=== PATIENT | female | born 1940 | race Hispanic/Latino ===

== ENCOUNTER 2017-04-05 19:31 | Inpatient (IN) | payer MEDICARE, MEDICAID ==
--- NOTE | 2017-04-05 22:39 | CP.PCM.HP ---
History of Present Illness - History of Present Illness History of Present Illness: PCP: Dr Anne Chief complaint: Left side weakness HPI: this hx is obtained from the medical hx. This is a 77 years old female, sent from [facility] to [facility] for Continued care and PT. She has Hx of CHF, CKD; HTN and and chronic left Frontal CVA and was admitted to the [facility] on 04/01/17 with a Right Large Acute MCA infarct and Left side weakness left side weakness. She refers no Headaches, dizziness, SOB nor Chest pains. PMH: Chronic A Fib on anticoagulant; Cardiomyopathy; CKD; CHF; HTN; Hypothyroidism; Chronic CVA; resolved Renal Cancer, PSH: Right hip Repaired fracture;Renal cell carcinoma s/p Right Nephrectomy SH: No Alcohol; No illegal drug use; no cigarettes; FH: No known family hx Allergies: NKDA Present on Admission - Present on Admission Any Indicators Present on Admission: No History of DVT/PE: No History of Uncontrolled Diabetes: No Urinary Catheter: No Decubitus Ulcer Present: No Review of Systems - Review of Systems Review of Systems: Review of system is limited because of the patients lack of attentiveness and mildly confused state. Past Patient History - Past Medical History & Family History Past Medical History?: Yes - Past Social History Smoking Status: Never Smoked Chewing Tobacco Use: No Cigar Use: No Alcohol: None - CARDIAC Hx Atrial Fibrillation: Yes Hx Congestive Heart Failure: Yes (Cardiomyopathy) Hx Hypertension: Yes - PULMONARY Hx Respiratory Disorders: No - NEUROLOGICAL HX Cerebrovascular Accident: Yes - HEENT Hx HEENT Problems: No - RENAL Hx Chronic Kidney Disease: Yes Hx Renal (Kidney) Cancer: Yes - ENDOCRINE/METABOLIC Hx Endocrine Disorders: Yes Hx Hypothyroidism: Yes - HEMATOLOGICAL/ONCOLOGICAL Hx Blood Disorders: No - INTEGUMENTARY Hx Dermatological Problems: No - MUSCULOSKELETAL/RHEUMATOLOGICAL Hx Musculoskeletal Disorders: No - GASTROINTESTINAL Hx Gastrointestinal Disorders: No - GENITOURINARY/GYNECOLOGICAL Hx Genitourinary Disorders: No - PSYCHIATRIC Hx Psychophysiologic Disorder: No - SURGICAL HISTORY Hx Orthopedic Surgery: Yes (Right hip Fx surgery) Other/Comment: Right Nephrectomy - ANESTHESIA Hx Anesthesia: Yes Hx Anesthesia Reactions: No Meds Allergies/Adverse Reactions: Allergies Allergy/AdvReac Type Severity Reaction Status Date / Time No Known Allergies Allergy NONE Verified 04/05/17 21:51 Physical Exam - Constitutional Appears: No Acute Distress - Head Exam Head Exam: ATRAUMATIC, NORMAL INSPECTION, NORMOCEPHALIC - Eye Exam Eye Exam: EOMI, Normal appearance Pupil Exam: NORMAL ACCOMODATION, PERRL - ENT Exam ENT Exam: Mucous Membranes Moist, Normal Exam, Normal External Ear Exam, Normal Oropharynx - Neck Exam Neck exam: Positive for: Full Rom, Normal Inspection. Negative for: Lymphadenopathy, Tenderness - Respiratory Exam Respiratory Exam: Clear to Auscultation Bilateral. absent: Rales, Wheezes, NORMAL BREATHING PATTERN - Cardiovascular Exam Cardiovascular Exam: REGULAR RHYTHM, RRR, +S1, +S2. absent: Gallop, JVD - GI/Abdominal Exam GI & Abdominal Exam: Normal Bowel Sounds, Soft. absent: Mass, Organomegaly, Tenderness - Rectal Exam Rectal Exam: Deferred - Extremities Exam Extremities exam: Positive for: full ROM, normal inspection. Negative for: calf tenderness, joint swelling - Back Exam Back exam: NORMAL INSPECTION. absent: CVA tenderness (L), CVA tenderness (R) - Neurological Exam Neurological exam: Alert, CN II-XII Intact, Reflexes Normal - Psychiatric Exam Psychiatric exam: Flat Affect - Skin Skin Exam: Intact, Normal Color, Warm Results - Labs Labs: PND Assessment & Plan - Assessment and Plan (Free Text) Assessment: #. Acute CVA #. A Fib #. Chronic CHF #. CKD #. HTN Plan: 77 years old female, sent from [facility] to [facility] for Continued care and PT. She has Hx of CHF, CKD; HTN and and chronic left Frontal CVA and was admitted to the [facility] on 04/01/17 with a Right Large Acute MCA infarct and Left side weakness left side weakness. #. Acute CVA - OT/PT evaluation and management #. A Fib with controlled response - Eliquis - Metoprolol #. Chronic CHF - Metoprolol - Lasix -Apresoline #. CKD - follow renal labs #. HTN - Metoprolol - Amlodipine; amlodipine #. DVT Prophylaxis: Patient on Eliquis #. Code Status: Full - Date & Time Date: 04/05/17 Time: 22:39
[2017-04-05] MEDS ORDERED: Ergocalciferol 50,000 Intl Units Cap PO SCH (23:45)
[2017-04-06] MEDS ORDERED: Magnesium Hydroxide Susp 30 ml UD PO PRN (00:51)
[2017-04-06] MEDS: Hydrocortisone 2.5% (Rectal) CREAM PR SCH ×2 (02:46→08:55)
[2017-04-06 06:57] LABS: HEMATOCRIT 38.9 % (34.0-47.0); MEAN CELL VOLUME 97.5 fl (81.0-99.0); MEAN CORPUSCULAR HGB CONC 31.8 g/dL (33.0-37.0); RED CELL DISTRIBUTION WIDTH 13.2 % (11.5-14.5); WHITE BLOOD COUNT 9.7 K/uL (4.8-10.8)
[2017-04-06 06:59] LABS: ALB/GLOB RATIO 1.2 (1.0-2.1); BILIRUBIN,TOTAL 0.6 mg/dl (0.2-1.3); CALCIUM 9.8 mg/dL (8.4-10.2); POTASSIUM 4.4 MMOL/L (3.6-5.0); TOTAL PROTEIN 7.3 G/DL (6.3-8.2)
[2017-04-06 07:30] LABS: PARTIAL THROMBOPLASTIN TIME 36.1 Seconds (25.6-37.1)
[2017-04-06] MEDS: Aspirin 325 mg EC Tablets PO SCH (08:52)
[2017-04-06] MEDS ORDERED: PREDNISONE 5 MG PO SCH (09:00)
--- NOTE | 2017-04-06 16:22 | CP.PCM.PN ---
Subjective - Date & Time of Evaluation Date of Evaluation: 04/06/17 Time of Evaluation: 16:20 - Subjective Subjective: right CVA with left HORSE RIDER and neglect Objective - Vital Signs/Intake and Output Vital Signs (last 24 hours): Temp Pulse Resp BP Pulse Ox 97.1 F L 77 19 147/80 96 04/06/17 08:38 04/06/17 08:54 04/06/17 08:38 04/06/17 08:54 04/06/17 08:38 - Medications Medications: Current Medications Acetaminophen (Tylenol 325mg Tab) 650 mg PO Q6 PRN PRN Reason: Other Amlodipine Besylate (Norvasc) 10 mg PO DAILY [facility] Last Admin: 04/06/17 08:52 Dose: 10 mg Apixaban (Eliquis) 2.5 mg PO BID [facility] PRN Reason: Protocol Last Admin: 04/06/17 08:51 Dose: 2.5 mg Aspirin (Ecotrin) 325 mg PO DAILY [facility] Last Admin: 04/06/17 08:52 Dose: 325 mg Atorvastatin Calcium (Lipitor) 20 mg PO HS [facility] Last Admin: 04/05/17 23:58 Dose: 20 mg Calcitriol (Rocaltrol) 0.25 mcg PO DAILY [facility] Last Admin: 04/06/17 08:53 Dose: 0.25 mcg Docusate Sodium (Colace) 100 mg PO BID [facility] Last Admin: 04/06/17 08:51 Dose: 100 mg Donepezil HCl (Aricept) 5 mg PO HS [facility] Last Admin: 04/05/17 23:58 Dose: 5 mg Ergocalciferol (Drisdol 50,000 Intl Units Cap) 1 cap PO .SATURDAY AND SATURDAY [facility] Famotidine (Pepcid) 20 mg PO BID [facility] Last Admin: 04/06/17 08:53 Dose: 20 mg Hydrocortisone (Anusol-Hc) 25 mg [place] BID [facility] Magnesium Hydroxide (Milk Of Magnesia) 30 ml PO DAILY PRN PRN Reason: Other Last Admin: 04/06/17 02:47 Dose: 30 ml Metoprolol Tartrate (Lopressor) 25 mg PO Q12 [facility] Last Admin: 04/06/17 08:54 Dose: 25 mg Prednisone (Prednisone Tab) 5 mg PO DAILY [facility] Last Admin: 04/06/17 08:51 Dose: 5 mg Psyllium Hydrophilic Mucilloid (Hydrocil Instant) 1 pkt PO BID [facility] Tramadol HCl (Ultram) 50 mg PO Q4 PRN PRN Reason: Pain, severe (8-10) - Labs Labs: 04/06/17 05:30 04/06/17 05:30 PT 12.5 Seconds (9.8-13.1) 04/06/17 06:45 INR 1.1 (0.9-1.2) 04/06/17 06:45 APTT 36.1 Seconds (25.6-37.1) 04/06/17 06:45 Physiatry Overall Plan of Care - Overall Plan of Care Estimated Length of Stay in Weeks: 3 Rehab Impairment: Mobility, Gait, Cognition, Balance, Coordination Etiologic Diagnosis: Cerebrovascular Accident Rehab/Medical Prognosis: Fair - Anticipated Interventions Physical Therapy:: Yes Occupational Therapy:: Yes Speech Therapy:: Yes Recreational Therapy:: Yes - Therapy Goals Bed Mobility: Supervision Ambulation: Supervision Functional Positional Changes:: Supervision - Discharge Plan Identification of Barriers to Discharge: Home Situation Discharge Destination: Home
--- NOTE | 2017-04-06 16:24 | CP.PCM.CON ---
History of Present Illness - History of Present Illness History of Present Illness: Dr Childress PMR consultation on [place] Bolanos born 1940, who has been admitted to [facility] for acute inpatient rehabilitation following an acute right CVA with left HP and left neglect. She had been ambulating with a SC. Review of Systems - Constitutional Constitutional: Daytime Sleepiness. absent: Anorexia, Chills - EENT Eyes: absent: Change in Vision Ears: absent: Decreased Hearing Nose/Mouth/Throat: absent: Nasal Congestion - Cardiovascular Cardiovascular: absent: Chest Pain, Rapid Heart Rate - Respiratory Respiratory: absent: Cough, Hemoptysis - Gastrointestinal Gastrointestinal: Other (symptoms of a hemorrhoid). absent: Belching - Musculoskeletal Musculoskeletal: Abnormal Gait. absent: Back Pain - Integumentary Integumentary: absent: Bleeding Lesions - Neurological Neurological: Other (left neglect). absent: Abnormal Hearing, Abnormal Movements Past Patient History - Past Medical History & Family History Past Medical History?: Yes - Past Social History Smoking Status: Never Smoked Chewing Tobacco Use: No Cigar Use: No Alcohol: None - CARDIAC Hx Atrial Fibrillation: Yes Hx Congestive Heart Failure: Yes (Cardiomyopathy) Hx Hypertension: Yes - PULMONARY Hx Respiratory Disorders: No - NEUROLOGICAL HX Cerebrovascular Accident: Yes - HEENT Hx HEENT Problems: No - RENAL Hx Chronic Kidney Disease: Yes Hx Renal (Kidney) Cancer: Yes - ENDOCRINE/METABOLIC Hx Endocrine Disorders: Yes Hx Hypothyroidism: Yes - HEMATOLOGICAL/ONCOLOGICAL Hx Blood Disorders: No - INTEGUMENTARY Hx Dermatological Problems: No - MUSCULOSKELETAL/RHEUMATOLOGICAL Hx Musculoskeletal Disorders: No - GASTROINTESTINAL Hx Gastrointestinal Disorders: No - GENITOURINARY/GYNECOLOGICAL Hx Genitourinary Disorders: No - PSYCHIATRIC Hx Psychophysiologic Disorder: No - SURGICAL HISTORY Hx Orthopedic Surgery: Yes (Right hip Fx surgery) Other/Comment: Right Nephrectomy - ANESTHESIA Hx Anesthesia: Yes Hx Anesthesia Reactions: No Meds Allergies/Adverse Reactions: Allergies Allergy/AdvReac Type Severity Reaction Status Date / Time No Known Allergies Allergy NONE Verified 04/05/17 21:51 - Medications Medications: Current Medications Acetaminophen (Tylenol 325mg Tab) 650 mg PO Q6 PRN PRN Reason: Other Amlodipine Besylate (Norvasc) 10 mg PO DAILY [facility] Last Admin: 04/06/17 08:52 Dose: 10 mg Apixaban (Eliquis) 2.5 mg PO BID [facility] PRN Reason: Protocol Last Admin: 04/06/17 08:51 Dose: 2.5 mg Aspirin (Ecotrin) 325 mg PO DAILY [facility] Last Admin: 04/06/17 08:52 Dose: 325 mg Atorvastatin Calcium (Lipitor) 20 mg PO HS [facility] Last Admin: 04/05/17 23:58 Dose: 20 mg Calcitriol (Rocaltrol) 0.25 mcg PO DAILY [facility] Last Admin: 04/06/17 08:53 Dose: 0.25 mcg Docusate Sodium (Colace) 100 mg PO BID [facility] Last Admin: 04/06/17 08:51 Dose: 100 mg Donepezil HCl (Aricept) 5 mg PO HS [facility] Last Admin: 04/05/17 23:58 Dose: 5 mg Ergocalciferol (Drisdol 50,000 Intl Units Cap) 1 cap PO .SATURDAY AND SATURDAY [facility] Famotidine (Pepcid) 20 mg PO BID [facility] Last Admin: 04/06/17 08:53 Dose: 20 mg Hydrocortisone (Anusol-Hc) 25 mg [place] BID [facility] Magnesium Hydroxide (Milk Of Magnesia) 30 ml PO DAILY PRN PRN Reason: Other Last Admin: 04/06/17 02:47 Dose: 30 ml Metoprolol Tartrate (Lopressor) 25 mg PO Q12 [facility] Last Admin: 04/06/17 08:54 Dose: 25 mg Prednisone (Prednisone Tab) 5 mg PO DAILY [facility] Last Admin: 04/06/17 08:51 Dose: 5 mg Psyllium Hydrophilic Mucilloid (Hydrocil Instant) 1 pkt PO BID [facility] Tramadol HCl (Ultram) 50 mg PO Q4 PRN PRN Reason: Pain, severe (8-10) Physical Exam - Constitutional Appears: Non-toxic, No Acute Distress - Head Exam Head Exam: ATRAUMATIC, NORMAL INSPECTION, NORMOCEPHALIC - Eye Exam Eye Exam: EOMI, Normal appearance - ENT Exam ENT Exam: Mucous Membranes Moist - Respiratory Exam Respiratory Exam: Chest Wall Tenderness, NORMAL BREATHING PATTERN - Cardiovascular Exam Cardiovascular Exam: REGULAR RHYTHM - GI/Abdominal Exam GI & Abdominal Exam: Normal Bowel Sounds - Extremities Exam Extremities exam: Negative for: calf tenderness, pedal edema - Neurological Exam Neurological exam: Alert - Psychiatric Exam Psychiatric exam: Normal Affect, Normal Mood Results - Vital Signs Recent Vital Signs: Last Vital Signs Temp 97.1 F L 04/06/17 08:38 Pulse 77 10/07/17 08:54 Resp 19 04/06/17 08:38 BP 147/80 04/06/17 08:54 Pulse Ox 96 04/06/17 08:38 - Labs Result Diagrams: 04/06/17 05:30 04/06/17 05:30 Labs: Laboratory Results - last 24 hr 04/06/17 04/06/17 04/06/17 05:30 05:30 06:45 WBC 9.7 RBC 4.00 Hgb 12.4 Hct 38.9 MCV 97.5 MCH 31.0 MCHC 31.8 L RDW 13.2 Plt Count 230 PT 12.5 INR 1.1 APTT 36.1 Sodium 143 Potassium 4.4 Chloride 104 Carbon Dioxide 24 Anion Gap 19 BUN 64 H Creatinine 2.8 H Est GFR ( Amer) 20 Est GFR (Non-Af Amer) 16 Random Glucose 104 Calcium 9.8 Total Bilirubin 0.6 AST 34 ALT 30 Alkaline Phosphatase 65 Total Protein 7.3 Albumin 4.0 Globulin 3.3 Albumin/Globulin Ratio 1.2 Assessment & Plan - Assessment and Plan (Free Text) Assessment: Patient with a right CVA and left HP and left neglect PT/OT to continue to help increase functional independence Team conference for d/c planning Pain: controlled Vascular: no evidence of DVT GI: No evidence of constipation or diarrhea Patient is an excellent acute rehabilitation candidate and will have focused speech, PT, OT and recreational therapy to help facilitate a safe and appropriate d/c plan impairment code 01.1
[2017-04-06] MEDS: Psyllium Packet PO SCH (17:52)
[2017-04-06] MEDS ORDERED: Patient's Own Med (Simvastatin [Zocor] 40 MG) PO SCH (22:00)
[2017-04-07] MEDS: Psyllium Packet PO SCH ×2 (08:58→17:50)
[2017-04-07] MEDS: Aspirin 325 mg EC Tablets PO SCH (08:59)
[2017-04-08] MEDS: Aspirin 325 mg EC Tablets PO SCH (08:28)
[2017-04-08] MEDS: Psyllium Packet PO SCH ×2 (08:29→16:28)
--- NOTE | 2017-04-08 11:39 | PCM.RRT ---
HOTEL MAINTENANCE WORKER Nurse Assessment - Situation [employer]OTEL MAINTENANCE WORKER Responder Arrival Time: 11:35 Location: 6th floor Room Number: [id number] [employer]EL MAINTENANCE WORKER Reason for Call: Chest Pain HOTEL MAINTENANCE WORKER Called By: RN - IV IV Inserted during HOTEL MAINTENANCE WORKER?: Yes - Respiratory Oxygen Delivery Method: Nasal Cannula Received Nebulizer Treatments: No Was the Patient Ventilated with Bag/Mask 100% O2?: No Secretions Suctioned?: No Was the Patient Intubated?: No Was the Patient Placed on a Ventilator?: No - Diagnostic Test Ordered EKG: Yes - Stat Labs Ordered [employer]OTEL MAINTENANCE WORKER Stat Labs Ordered: TROPONIN Plan - Assessment of Findings&Treatment Plan HOTEL MAINTENANCE WORKER: 11:32 AM HOTEL MAINTENANCE WORKER location: 62- [employer]EL MAINTENANCE WORKER arrival: 11:35 am [employer]EL MAINTENANCE WORKER reason: chest pain S: Patient was seen at bedside after HOTEL MAINTENANCE WORKER was called by the RN complaining of chest pain. Patient is lying in bed awake with chest pain. Patient is currently on nasal cannula. O: HOTEL MAINTENANCE WORKER vitals: T: 97.5, BP: 130/75 mmHg, HR: 52, General: Lying supine in bed Heent: AT/NC RESP: CTAB Cardio: S1 S2 Abd: soft, non-tender [employer]EL MAINTENANCE WORKER Intervention: 1. 1 mg of Morphine administered 2. Troponin levels 3. EKG A/P: 77 y/o female seen for sudden onset of chest pain [employer]OTEL MAINTENANCE WORKER Outcome: 1. Patient is stable 2. continue monitoring vitals 3. PMD: Dr. Mccord 4. F/U with troponin and EKG [employer]OTEL MAINTENANCE WORKER vitals: T: 97.5, BP: 161/58 mmHg, HR: 81 [employer]OTEL MAINTENANCE WORKER End: 11:43 am [employer]OTEL MAINTENANCE WORKER Leader: Dr. Mccord HOTEL MAINTENANCE WORKER Resident: Dr. Pj Mejia, Dr. Nicol Mejia, Dr. Gideon White
--- NOTE | 2017-04-08 15:04 | CP.PCM.PN ---
Subjective - Date & Time of Evaluation Date of Evaluation: 04/08/17 Time of Evaluation: 14:00 - Subjective Subjective: Today the patient had a sudden episode of chest pain which was worse with moving her left arm. DIRECTOR EPIDEMIOLOGY was called, please see note for further details. Currently the patient is chest pain free, with troponin being in normal limits, and no acute changes on EKG. The patient has no other complaints today. She says she feels well otherwise. Objective - Vital Signs/Intake and Output Vital Signs (last 24 hours): Temp Pulse Resp BP Pulse Ox 97.7 F 72 18 141/74 100 04/08/17 07:47 04/08/17 12:03 04/08/17 12:03 04/08/17 12:03 04/08/17 12:03 - Medications Medications: Current Medications Acetaminophen (Tylenol 325mg Tab) 650 mg PO Q6 PRN PRN Reason: Other Last Admin: 04/07/17 09:06 Dose: 650 mg Amlodipine Besylate (Norvasc) 10 mg PO DAILY [facility] Last Admin: 04/08/17 08:28 Dose: 10 mg Apixaban (Eliquis) 2.5 mg PO BID [facility] PRN Reason: Protocol Last Admin: 04/08/17 08:28 Dose: 2.5 mg Aspirin (Ecotrin) 325 mg PO DAILY [facility] Last Admin: 04/08/17 08:28 Dose: 325 mg Atorvastatin Calcium (Lipitor) 20 mg PO HS [facility] Last Admin: 04/07/17 21:03 Dose: 20 mg Calcitriol (Rocaltrol) 0.25 mcg PO DAILY [facility] Last Admin: 04/08/17 08:28 Dose: 0.25 mcg Docusate Sodium (Colace) 100 mg PO BID [facility] Last Admin: 04/08/17 08:27 Dose: 100 mg Donepezil HCl (Aricept) 5 mg PO HS [facility] Last Admin: 04/07/17 21:06 Dose: 5 mg Ergocalciferol (Drisdol 50,000 Intl Units Cap) 1 cap PO .SATURDAY AND SATURDAY [facility] Famotidine (Pepcid) 20 mg PO BID [facility] Last Admin: 04/08/17 08:28 Dose: 20 mg Hydrocortisone (Anusol-Hc) 25 mg [place] BID [facility] Last Admin: 04/08/17 08:29 Dose: 25 mg Magnesium Hydroxide (Milk Of Magnesia) 30 ml PO DAILY PRN PRN Reason: Other Last Admin: 04/06/17 02:47 Dose: 30 ml Metoprolol Tartrate (Lopressor) 25 mg PO Q12 [facility] Last Admin: 04/08/17 08:26 Dose: 25 mg Prednisone (Prednisone Tab) 5 mg PO DAILY [facility] Last Admin: 04/08/17 08:29 Dose: 5 mg Psyllium Hydrophilic Mucilloid (Hydrocil Instant) 1 pkt PO BID [facility] Last Admin: 04/08/17 08:29 Dose: 1 pkt Tramadol HCl (Ultram) 50 mg PO Q4 PRN PRN Reason: Pain, severe (8-10) - Labs Labs: 04/06/17 05:30 04/06/17 05:30 PT 12.5 Seconds (9.8-13.1) 04/06/17 06:45 INR 1.1 (0.9-1.2) 04/06/17 06:45 APTT 36.1 Seconds (25.6-37.1) 04/06/17 06:45 - Additional Findings Additional findings: PHYSICAL EXAMINATION: GENERAL: The patient is alert and oriented x 3, seen in wheelchair undergoing physical therapy, appears comfortable HEENT: Normocephalic, atraumatic. Extraocular movements intact. No sinus tenderness. Oropharynx clear. Mucous membranes are moist. no scleral icterus NECK: Supple without lymph node. CHEST: CTA bilaterally, no wheezes, rales, or rhonchi HEART: S1, S2. regular rate and rhythm ABDOMEN: Soft, nontender, nondistended No organomegaly. EXTREMITIES: No cyanosis, clubbing or edema. NEUROLOGIC: No focal deficit. No sensory deficit. PSYCHOSOCIAL: No signs of depression and is nonfocal. INTEGUMENT: Moist mucous membranes. Good skin turgor, intact. Assessment and Plan - Assessment and Plan (Free Text) Plan: 1). Acute CVA 2). A Fib 3). Chronic CHF 4). CKD 5). HTN 6) Chest pain today, resolved Plan: This is a 77 years old female, sent from [facility] to [facility] for Continued care and PT. She has Hx of CHF, CKD; HTN and and chronic left Frontal CVA and was admitted to the [facility] on 10/2/17 with a Right Large Acute MCA infarct and Left side weakness left side weakness. 1) . Acute CVA - Continue OT/PT, ongoing 2). A Fib/Flutter with controlled response - Continue Eliquis - Continue Metoprolol 3). Chronic CHF - Metoprolol - Lasix -Apresoline 4). CKD - follow renal labs 5). HTN - Metoprolol - Amlodipine; amlodipine 6). DVT Prophylaxis: Patient on Eliquis 7) Chest pain today, resolved - Troponin WNL - EKG with no acute changes - Likely musculoskeletal in nature, rufina given that pain is worse with movement of her arm. #. Code Status: Full
--- NOTE | 2017-04-08 16:39 | CP.PCM.PN ---
Subjective - Date & Time of Evaluation Date of Evaluation: 04/08/17 Time of Evaluation: 16:38 - Subjective Subjective: Patient seen in room still with dense left neglect in spite of minimal weakness in the involved extremity had some chest pain earlier today but now feels good continue therapy Objective - Vital Signs/Intake and Output Vital Signs (last 24 hours): Temp Pulse Resp BP Pulse Ox 97.7 F 74 18 141/74 100 04/08/17 07:47 04/08/17 16:12 04/08/17 12:03 04/08/17 12:03 04/08/17 16:12 - Medications Medications: Current Medications Acetaminophen (Tylenol 325mg Tab) 650 mg PO Q6 PRN PRN Reason: Other Last Admin: 04/07/17 09:06 Dose: 650 mg Amlodipine Besylate (Norvasc) 10 mg PO DAILY [facility] Last Admin: 04/08/17 08:28 Dose: 10 mg Apixaban (Eliquis) 2.5 mg PO BID [facility] PRN Reason: Protocol Last Admin: 04/08/17 16:28 Dose: 2.5 mg Aspirin (Ecotrin) 325 mg PO DAILY [facility] Last Admin: 04/08/17 08:28 Dose: 325 mg Atorvastatin Calcium (Lipitor) 20 mg PO HS [facility] Last Admin: 04/07/17 21:03 Dose: 20 mg Calcitriol (Rocaltrol) 0.25 mcg PO DAILY [facility] Last Admin: 04/08/17 08:28 Dose: 0.25 mcg Docusate Sodium (Colace) 100 mg PO BID [facility] Last Admin: 04/08/17 16:28 Dose: 100 mg Donepezil HCl (Aricept) 5 mg PO HS [facility] Last Admin: 04/07/17 21:06 Dose: 5 mg Ergocalciferol (Drisdol 50,000 Intl Units Cap) 1 cap PO .SATURDAY AND SATURDAY [facility] Famotidine (Pepcid) 20 mg PO BID [facility] Last Admin: 04/08/17 16:29 Dose: 20 mg Hydrocortisone (Anusol-Hc) 25 mg [place] BID [facility] Last Admin: 04/08/17 16:27 Dose: 25 mg Magnesium Hydroxide (Milk Of Magnesia) 30 ml PO DAILY [facility] PRN Reason: Other Last Admin: 04/06/17 02:47 Dose: 30 ml Metoprolol Tartrate (Lopressor) 25 mg PO Q12 [facility] Last Admin: 04/08/17 08:26 Dose: 25 mg Prednisone (Prednisone Tab) 5 mg PO DAILY [facility] Last Admin: 04/08/17 08:29 Dose: 5 mg Psyllium Hydrophilic Mucilloid (Hydrocil Instant) 1 pkt PO BID [facility] Last Admin: 04/08/17 16:28 Dose: 1 pkt Tramadol HCl (Ultram) 50 mg PO Q4 PRN PRN Reason: Pain, severe (8-10) - Labs Labs: 04/06/17 05:30 04/06/17 05:30 PT 12.5 Seconds (9.8-13.1) 04/06/17 06:45 INR 1.1 (0.9-1.2) 04/06/17 06:45 APTT 36.1 Seconds (25.6-37.1) 04/06/17 06:45
[2017-04-09] MEDS: Aspirin 325 mg EC Tablets PO SCH (09:16)
[2017-04-09] MEDS: Psyllium Packet PO SCH ×2 (09:17→17:05)
--- NOTE | 2017-04-09 12:47 | CARD ---
APPROVED REPORT EKG Measurement Heart [id number] P81 [id number] <Conclusion> Atrial flutter with 4:1 AV conduction Right bundle branch block Inferior infarct, age undetermined Abnormal ECG
--- NOTE | 2017-04-09 13:23 | PSY.TMCNF ---
Nursing - Vital Signs Vital Signs (Last 8 hours): Vital Signs 04/09/17 04/09/17 04/09/17 08:19 09:17 09:19 Temperature 97.5 F L Pulse Rate 72 72 72 Respiratory 20 Rate Blood Pressure 139/88 139/88 139/88 O2 Sat by Pulse 100 Oximetry Pain: 0 - Medications/Other Issues Comment: Pt at high nutritional risk. goal:1. Improve PO intake to greater than 75% at mealtimes. follow-up due on 04/09/2017 - Bladder Management Bladder Pattern: Normal Voiding Method: Bedside Commode - Bowel Management Bowel Pattern: Constipated - Goals/Time Frame Comments: Pt was seen following PT session. Pt brought into recreation room and oriented to leisure tasks offered. Pt stated that she would like to be called "Ashlee". Pt expressed interest in playing [employer] and expressed to PT that she enjoys playing games. Pt presented with decrease initiation to respond to questions. Pt presented with modified ailin card task, pt required max verbal cues for participation to task. Pt stated, "I'm not playing this" and pt did not respond her choice of leisure tasks to play. Pt stated that she wanted to lay down. Pt returned to room, placed call frank within reach, RN aware. Physical Therapy - Bed Mobility Bed Mobility: Verbal Cues Comment: assist level flucutates based on pts motivation to get out of bed. fluctuates from CGA to max A - Transfers Wheelchair to Mat: Verbal Cues, Moderate Assistance Sit to Stand: Verbal Cues, Contact Guard, Minimal Assistance - Ambulation Level of Assistance: Verbal Cues, Minimal Assistance Distance (ft.): 50 Assistive Devices: Rolling Walker - Stair Negotiation Stairs: Level of Assistance: Verbal Cues, Moderate Assistance Number of Stairs: 3 Handrails: Bilateral Stairs: Assistive Devices: Left Handrail, Right Handrail - Standing Balance Static Stand: Contact Guard Assist Dynamic Stand: Minimal Assistance - Pain Management Techniques: Medication, Position Change - Insight/Carryover Insight/Carryover: Poor - Patient/Family Education Comment: Pt education for increased safety awareness and proper techniques during functional mobility skills. Education for importance of OOB activity and PT intervention for stroke recovery (pt with decreased motivation) - Assessment/Plan Assessment: Pts functional mobility skills fluctuate on her motivation to participate. Pt requires max A for bed mobility (2/2 resistance), min/mod A for transfers, min A for gait with RW, and mod A for stair negotiation. (+) L neglect noted during functional mobility skills. Pt will continue to benefit from skilled PT intervention to address deficits, reduce fall risk, and maximize functional independence. Barriers: motivation, unsure of social support - Goals Timeframe: 3 weeks Goals: Bed mobility with supervision. Sit < > stand with supervision using RW. Ambulate 200 ft with RW and S. Negotiate flight of stairs with B handrails and supervision - Provider Therapist: Angelika Pratt PT, DPT License Number: [id number] Occupational Therapy - Arousal/Attention/Orientation Level of Consciousness: Lethargic Patient Orientation: Person, Place - ADL/IADL Self Feeding: Verbal Cues, Set-up Help, Minimal Assistance Grooming: Verbal Cues, Set-up Help, Minimal Assistance Dressing-Upper Extremity: Verbal Cues, Set-up Help, Minimal Assistance Dressing-Lower Extremity: Verbal Cues, Set-up Help, Maximum Assistance Comment: Patient requires increased time to initiate and terminate actions. She is noted to follow directions well when motivated by natural urges. Pt with perseverations to return to bed and at times adamently refuses to do tasks. - Sitting Balance Static Sitting: Supervision Dynamic Sitting: Minimal Assistance - Transfers Wheelchair to Bed Transfers: Verbal Cues, Set-up Help, Minimal Assistance Toilet Transfers: Verbal Cues, Set-up Help, Minimal Assistance Comment: pt refuses shower - Upper Extremity Status Right Upper Extremity Comment: ROM WFL, strength impaired grossly Left Upper Extremity Comment: ROM WFL, strength impaired grossly, impaired dexerity - Pain Alleviating Techniques: Medication, Position Change - Insight/Carryover Insight/Carryover: Poor - Patient/Family Education Comment: Pt education for increased safety awareness and proper techniques during functional mobility skills. Education for importance of OOB activity and PT intervention for stroke recovery (pt with decreased motivation) - Assessment/Plan Assessment: Pts functional mobility skills fluctuate on her motivation to participate. Pt requires max A for bed mobility (2/2 resistance), min/mod A for transfers, min A for gait with RW, and mod A for stair negotiation. (+) L neglect noted during functional mobility skills. Pt will continue to benefit from skilled PT intervention to address deficits, reduce fall risk, and maximize functional independence. Barriers: motivation, unsure of social support - Goals Timeframe: 3 weeks Goals: Bed mobility with supervision. Sit < > stand with supervision using RW. Ambulate 200 ft with RW and S. Negotiate flight of stairs with B handrails and supervision - Provider Therapist: Kathy Alexander License Number: [id number] Speech Therapy - Consult Information Patient on Program: Yes Medical Diagnosis: CVA Treatment Diagnosis: moderate cognitive deficits - Assessment Problem Solving Impairment: Moderate Memory Impairment: Moderate - Plan Assessment: Pts functional mobility skills fluctuate on her motivation to participate. Pt requires max A for bed mobility (2/2 resistance), min/mod A for transfers, min A for gait with RW, and mod A for stair negotiation. (+) L neglect noted during functional mobility skills. Pt will continue to benefit from skilled PT intervention to address deficits, reduce fall risk, and maximize functional independence. Barriers: motivation, unsure of social support - Provider Therapist: Piedad Ken License Number: [id number] Recreational Therapy - Participation Participation: Monitors His/Her Own Leisure Time - Attendance Attendance: Daily - Activities Leisure Activities: Television - Socialization Level of Socialization: Responds freely, but does not initiate - Assessment Assessment/Plan: Pts functional mobility skills fluctuate on her motivation to participate. Pt requires max A for bed mobility (2/2 resistance), min/mod A for transfers, min A for gait with RW, and mod A for stair negotiation. (+) L neglect noted during functional mobility skills. Pt will continue to benefit from skilled PT intervention to address deficits, reduce fall risk, and maximize functional independence. Barriers: motivation, unsure of social support - Provider Therapist: Nubia Foy, [employer] #[id number] Nutrition - Current Diet Current Diet/ Supplement/ Feedings: Heart healthy 60 gram protein diet - Appetite Percent Meal Consumed: 50-74% - Assessment/Goals/Time Frame Assessment/Goals/Time Frame: Pt at high nutritional risk. goal:1. Improve PO intake to greater than 75% at mealtimes. follow-up due on 04/09/2017 - Provider Provider: Amy Shannon RD Case Management - Discharge Plan Discharge Plan: Home alone Rehabilitation Plan - Treatment Plan Treatment Plan: Physical Therapy, Occupational Therapy, Speech, Dietary, Patient /Family Education - Discharge Plan Estimated Date of Discharge: 04/24/17 Discharge to: Home
--- NOTE | 2017-04-09 13:43 | CP.PCM.PN ---
Subjective - Date & Time of Evaluation Date of Evaluation: 04/09/17 Time of Evaluation: 13:41 - Subjective Subjective: Patient seen in room gave therapy a hard time today and I had a discussion with her on compliance she agreed to be more compliant denies pain still with left neglect but in spite of all of this she is making gains and able to ambulate 50' with supervision continue current care Objective - Vital Signs/Intake and Output Vital Signs (last 24 hours): Temp Pulse Resp BP Pulse Ox 97.5 F L 72 20 139/88 100 04/09/17 08:19 04/09/17 09:19 04/09/17 08:19 04/09/17 09:19 04/09/17 08:19 - Medications Medications: Current Medications Acetaminophen (Tylenol 325mg Tab) 650 mg PO Q6 PRN PRN Reason: Other Last Admin: 04/07/17 09:06 Dose: 650 mg Amlodipine Besylate (Norvasc) 10 mg PO DAILY [facility] Last Admin: 04/09/17 09:17 Dose: 10 mg Apixaban (Eliquis) 2.5 mg PO BID [facility] PRN Reason: Protocol Last Admin: 04/09/17 09:17 Dose: 2.5 mg Aspirin (Ecotrin) 325 mg PO DAILY [facility] Last Admin: 04/09/17 09:16 Dose: 325 mg Atorvastatin Calcium (Lipitor) 20 mg PO HS [facility] Last Admin: 04/08/17 21:22 Dose: 20 mg Calcitriol (Rocaltrol) 0.25 mcg PO DAILY [facility] Last Admin: 04/09/17 09:18 Dose: 0.25 mcg Docusate Sodium (Colace) 100 mg PO BID [facility] Last Admin: 04/09/17 09:16 Dose: 100 mg Donepezil HCl (Aricept) 5 mg PO HS [facility] Last Admin: 04/08/17 21:23 Dose: 5 mg Ergocalciferol (Drisdol 50,000 Intl Units Cap) 1 cap PO .SATURDAY AND SATURDAY [facility] Famotidine (Pepcid) 20 mg PO BID [facility] Last Admin: 04/09/17 09:18 Dose: 20 mg Hydrocortisone (Anusol-Hc) 25 mg [place] BID [facility] Last Admin: 04/09/17 09:16 Dose: 25 mg Magnesium Hydroxide (Milk Of Magnesia) 30 ml PO DAILY PRN PRN Reason: Other Last Admin: 04/06/17 02:47 Dose: 30 ml Metoprolol Tartrate (Lopressor) 25 mg PO Q12 [facility] Last Admin: 04/09/17 09:19 Dose: 25 mg Prednisone (Prednisone Tab) 5 mg PO DAILY [facility] Last Admin: 04/09/17 09:18 Dose: 5 mg Psyllium Hydrophilic Mucilloid (Hydrocil Instant) 1 pkt PO BID [facility] Last Admin: 04/09/17 09:17 Dose: 1 pkt Tramadol HCl (Ultram) 50 mg PO Q4 PRN PRN Reason: Pain, severe (8-10) Last Admin: 04/09/17 09:22 Dose: 50 mg - Labs Labs: 04/06/17 05:30 04/06/17 05:30 PT 12.5 Seconds (9.8-13.1) 04/06/17 06:45 INR 1.1 (0.9-1.2) 04/06/17 06:45 APTT 36.1 Seconds (25.6-37.1) 04/06/17 06:45
[2017-04-10] MEDS: Aspirin 325 mg EC Tablets PO SCH (08:51)
[2017-04-10] MEDS: Psyllium Packet PO SCH ×2 (08:52→17:28)
--- NOTE | 2017-04-10 11:08 | CP.PCM.PN ---
Subjective - Date & Time of Evaluation Date of Evaluation: 04/10/17 Time of Evaluation: 10:30 - Subjective Subjective: Pt seen and examined. Admitted feeling better and improving strength on her left side Objective - Vital Signs/Intake and Output Vital Signs (last 24 hours): Temp Pulse Resp BP Pulse Ox 97.3 F L 63 19 140/62 100 04/10/17 09:07 04/10/17 09:07 04/10/17 09:07 04/10/17 09:07 04/10/17 09:07 - Medications Medications: Current Medications Acetaminophen (Tylenol 325mg Tab) 650 mg PO Q6 PRN PRN Reason: Other Last Admin: 04/09/17 15:00 Dose: 650 mg Amlodipine Besylate (Norvasc) 10 mg PO DAILY [facility] Last Admin: 04/10/17 08:51 Dose: 10 mg Apixaban (Eliquis) 2.5 mg PO BID [facility] PRN Reason: Protocol Last Admin: 04/10/17 08:51 Dose: 2.5 mg Aspirin (Ecotrin) 325 mg PO DAILY [facility] Last Admin: 04/10/17 08:51 Dose: 325 mg Atorvastatin Calcium (Lipitor) 20 mg PO HS [facility] Last Admin: 04/09/17 21:03 Dose: 20 mg Calcitriol (Rocaltrol) 0.25 mcg PO DAILY [facility] Last Admin: 04/10/17 08:50 Dose: 0.25 mcg Docusate Sodium (Colace) 100 mg PO BID [facility] Last Admin: 04/10/17 08:50 Dose: 100 mg Donepezil HCl (Aricept) 5 mg PO HS [facility] Last Admin: 04/09/17 21:03 Dose: 5 mg Ergocalciferol (Drisdol 50,000 Intl Units Cap) 1 cap PO .SATURDAY AND SATURDAY [facility] Famotidine (Pepcid) 20 mg PO BID [facility] Last Admin: 04/10/17 08:51 Dose: 20 mg Hydrocortisone (Anusol-Hc) 25 mg [place] BID [facility] Last Admin: 04/10/17 08:50 Dose: 25 mg Magnesium Hydroxide (Milk Of Magnesia) 30 ml PO DAILY PRN PRN Reason: Other Last Admin: 04/06/17 02:47 Dose: 30 ml Metoprolol Tartrate (Lopressor) 25 mg PO Q12 [facility] Last Admin: 04/10/17 08:51 Dose: 25 mg Prednisone (Prednisone Tab) 5 mg PO DAILY [facility] Last Admin: 04/10/17 08:52 Dose: 5 mg Psyllium Hydrophilic Mucilloid (Hydrocil Instant) 1 pkt PO BID [facility] Last Admin: 04/10/17 08:52 Dose: 1 pkt Tramadol HCl (Ultram) 50 mg PO Q4 PRN PRN Reason: Pain, severe (8-10) Last Admin: 04/09/17 09:22 Dose: 50 mg - Labs Labs: 04/06/17 05:30 04/06/17 05:30 PT 12.5 Seconds (9.8-13.1) 04/06/17 06:45 INR 1.1 (0.9-1.2) 04/06/17 06:45 APTT 36.1 Seconds (25.6-37.1) 04/06/17 06:45 - Constitutional Appears: No Acute Distress - Head Exam Head Exam: ATRAUMATIC - Eye Exam Eye Exam: absent: Scleral icterus - ENT Exam ENT Exam: Mucous Membranes Moist - Neck Exam Neck Exam: absent: Meningismus - Respiratory Exam Respiratory Exam: absent: Rhonchi, Wheezes, Respiratory Distress - Cardiovascular Exam Cardiovascular Exam: Irregular Rhythm - GI/Abdominal Exam GI & Abdominal Exam: Soft. absent: Tenderness - Rectal Exam Rectal Exam: Deferred - Neurological Exam Neurological Exam: Alert, Oriented x3 - Psychiatric Exam Psychiatric exam: Flat Affect - Skin Skin Exam: Dry, Intact Assessment and Plan - Assessment and Plan (Free Text) Assessment: 77 yo female with history of Chronic AFib/Flutter, CHF, HTN, CKD and Chronic Left Frontal CVA [place] [facility] [place] because of left sided weakness secondary to Acute Large MCA infarct. She was transferred to [facility] on and admitted to Acute Rehab for continued care and PT/OT. 1. Acute MCA CVA continue PT/OT 2. A Fib/Flutter rate controlled continue Metoprolol and Eliquis 3. Chronic CHF stable, denied SOB on Metoprolol and Amlodipine 4. CKD stable repeat BMP in am 5. HTN BP stable continue Metoprolol and Amlodipine 6. DVT Prophylaxis patient on Eliquis
--- NOTE | 2017-04-10 17:11 | CP.PCM.PN ---
Subjective - Date & Time of Evaluation Date of Evaluation: 04/10/17 Time of Evaluation: 17:10 - Subjective Subjective: Patient seen at nurse's station not too conversational today did 100' with RW in therapy but required min A at times continue with current care, not yet safe for d/c Objective - Vital Signs/Intake and Output Vital Signs (last 24 hours): Temp Pulse Resp BP Pulse Ox 97.3 F L 63 19 140/62 100 04/10/17 09:07 04/10/17 09:07 04/10/17 09:07 04/10/17 09:07 04/10/17 09:07 - Medications Medications: Current Medications Acetaminophen (Tylenol 325mg Tab) 650 mg PO Q6 PRN PRN Reason: Other Last Admin: 04/09/17 15:00 Dose: 650 mg Amlodipine Besylate (Norvasc) 10 mg PO DAILY [facility] Last Admin: 04/10/17 08:51 Dose: 10 mg Apixaban (Eliquis) 2.5 mg PO BID [facility] PRN Reason: Protocol Last Admin: 04/10/17 08:51 Dose: 2.5 mg Aspirin (Ecotrin) 325 mg PO DAILY [facility] Last Admin: 04/10/17 08:51 Dose: 325 mg Atorvastatin Calcium (Lipitor) 20 mg PO HS [facility] Last Admin: 04/09/17 21:03 Dose: 20 mg Calcitriol (Rocaltrol) 0.25 mcg PO DAILY [facility] Last Admin: 04/10/17 08:50 Dose: 0.25 mcg Docusate Sodium (Colace) 100 mg PO BID [facility] Last Admin: 04/10/17 08:50 Dose: 100 mg Donepezil HCl (Aricept) 5 mg PO HS [facility] Last Admin: 04/09/17 21:03 Dose: 5 mg Ergocalciferol (Drisdol 50,000 Intl Units Cap) 1 cap PO .SATURDAY AND SATURDAY [facility] Famotidine (Pepcid) 20 mg PO BID [facility] Last Admin: 04/10/17 08:51 Dose: 20 mg Hydrocortisone (Anusol-Hc) 25 mg [place] BID [facility] Last Admin: 04/10/17 08:50 Dose: 25 mg Magnesium Hydroxide (Milk Of Magnesia) 30 ml PO DAILY PRN PRN Reason: Other Last Admin: 04/06/17 02:47 Dose: 30 ml Metoprolol Tartrate (Lopressor) 25 mg PO Q12 [facility] Last Admin: 04/10/17 08:51 Dose: 25 mg Prednisone (Prednisone Tab) 5 mg PO DAILY [facility] Last Admin: 04/10/17 08:52 Dose: 5 mg Psyllium Hydrophilic Mucilloid (Hydrocil Instant) 1 pkt PO BID [facility] Last Admin: 04/10/17 08:52 Dose: 1 pkt Tramadol HCl (Ultram) 50 mg PO Q4 PRN PRN Reason: Pain, severe (8-10) Last Admin: 04/09/17 09:22 Dose: 50 mg - Labs Labs: 04/06/17 05:30 04/06/17 05:30 PT 12.5 Seconds (9.8-13.1) 04/06/17 06:45 INR 1.1 (0.9-1.2) 04/06/17 06:45 APTT 36.1 Seconds (25.6-37.1) 04/06/17 06:45
[2017-04-11 07:34] LABS: CALCIUM 9.2 mg/dL (8.4-10.2); POTASSIUM 4.2 MMOL/L (3.6-5.0)
[2017-04-11] MEDS: Psyllium Packet PO SCH ×2 (08:55→17:15)
[2017-04-11] MEDS: Aspirin 325 mg EC Tablets PO SCH (08:57)
--- NOTE | 2017-04-11 17:54 | CP.PCM.PN ---
Subjective - Date & Time of Evaluation Date of Evaluation: 04/11/17 Time of Evaluation: 17:53 - Subjective Subjective: Patient seen in room not very alert and interactive I have discussed with the staff and we will start provigil now to see if this will help with attention and participation Objective - Vital Signs/Intake and Output Vital Signs (last 24 hours): Temp Pulse Resp BP Pulse Ox 97.5 F L 71 19 148/73 99 04/11/17 10:00 04/11/17 10:00 04/11/17 10:00 04/11/17 10:00 04/11/17 10:00 - Medications Medications: Current Medications Acetaminophen (Tylenol 325mg Tab) 650 mg PO Q6 PRN PRN Reason: Other Last Admin: 04/11/17 09:03 Dose: 650 mg Amlodipine Besylate (Norvasc) 10 mg PO DAILY [facility] Last Admin: 04/11/17 09:01 Dose: 10 mg Apixaban (Eliquis) 2.5 mg PO BID [facility] PRN Reason: Protocol Last Admin: 04/11/17 17:15 Dose: 2.5 mg Aspirin (Ecotrin) 325 mg PO DAILY [facility] Last Admin: 04/11/17 08:57 Dose: 325 mg Atorvastatin Calcium (Lipitor) 20 mg PO HS [facility] Last Admin: 04/10/17 22:13 Dose: 20 mg Calcitriol (Rocaltrol) 0.25 mcg PO DAILY [facility] Last Admin: 04/11/17 08:56 Dose: 0.25 mcg Docusate Sodium (Colace) 100 mg PO BID [facility] Last Admin: 04/11/17 17:14 Dose: 100 mg Donepezil HCl (Aricept) 5 mg PO HS [facility] Last Admin: 04/10/17 22:13 Dose: 5 mg Ergocalciferol (Drisdol 50,000 Intl Units Cap) 1 cap PO .SATURDAY AND SATURDAY [facility] Famotidine (Pepcid) 20 mg PO BID [facility] Last Admin: 04/11/17 17:15 Dose: 20 mg Hydrocortisone (Anusol-Hc) 25 mg [place] BID [facility] Last Admin: 04/11/17 17:15 Dose: 25 mg Magnesium Hydroxide (Milk Of Magnesia) 30 ml PO DAILY PRN PRN Reason: Other Last Admin: 04/06/17 02:47 Dose: 30 ml Metoprolol Tartrate (Lopressor) 25 mg PO Q12 [facility] Last Admin: 04/11/17 09:01 Dose: 25 mg Prednisone (Prednisone Tab) 5 mg PO DAILY [facility] Last Admin: 04/11/17 09:02 Dose: 5 mg Psyllium Hydrophilic Mucilloid (Hydrocil Instant) 1 pkt PO BID [facility] Last Admin: 04/11/17 17:15 Dose: 1 pkt Tramadol HCl (Ultram) 50 mg PO Q4 PRN PRN Reason: Pain, severe (8-10) Last Admin: 04/09/17 09:22 Dose: 50 mg Tramadol HCl (Ultram) 50 mg PO Q4 PRN PRN Reason: Pain, severe (8-10) - Labs Labs: 04/06/17 05:30 04/11/17 06:35 PT 12.5 Seconds (9.8-13.1) 04/06/17 06:45 INR 1.1 (0.9-1.2) 04/06/17 06:45 APTT 36.1 Seconds (25.6-37.1) 04/06/17 06:45
[2017-04-12] MEDS: Aspirin 325 mg EC Tablets PO SCH (09:56)
[2017-04-12] MEDS: Psyllium Packet PO SCH ×2 (09:56→17:44)
--- NOTE | 2017-04-12 10:50 | CP.PCM.PN ---
Subjective - Date & Time of Evaluation Date of Evaluation: 04/12/17 Time of Evaluation: 10:48 - Subjective Subjective: PATIENT SEEN AND EXAMINED FOR ACUTE CVA NO COMPLAINTS DOING WELL NO CP NO DYSPNEA HD STABLE Objective - Vital Signs/Intake and Output Vital Signs (last 24 hours): Temp Pulse Resp BP Pulse Ox 97.3 F L 70 19 120/70 96 04/12/17 08:30 04/12/17 09:57 04/12/17 08:30 04/12/17 09:57 04/12/17 08:30 - Medications Medications: Current Medications Acetaminophen (Tylenol 325mg Tab) 650 mg PO Q6 PRN PRN Reason: Other Last Admin: 04/11/17 09:03 Dose: 650 mg Amlodipine Besylate (Norvasc) 10 mg PO DAILY [facility] Last Admin: 04/12/17 09:57 Dose: 10 mg Apixaban (Eliquis) 2.5 mg PO BID [facility] PRN Reason: Protocol Last Admin: 04/12/17 09:56 Dose: 2.5 mg Aspirin (Ecotrin) 325 mg PO DAILY [facility] Last Admin: 04/12/17 09:56 Dose: 325 mg Atorvastatin Calcium (Lipitor) 20 mg PO HS [facility] Last Admin: 04/11/17 21:21 Dose: 20 mg Calcitriol (Rocaltrol) 0.25 mcg PO DAILY [facility] Last Admin: 04/12/17 09:56 Dose: 0.25 mcg Docusate Sodium (Colace) 100 mg PO BID [facility] Last Admin: 04/12/17 09:55 Dose: 100 mg Donepezil HCl (Aricept) 5 mg PO HS [facility] Last Admin: 04/11/17 21:21 Dose: 5 mg Ergocalciferol (Drisdol 50,000 Intl Units Cap) 1 cap PO .SATURDAY AND SATURDAY [facility] Famotidine (Pepcid) 20 mg PO BID [facility] Last Admin: 04/12/17 09:56 Dose: 20 mg Hydrocortisone (Anusol-Hc) 25 mg [place] BID [facility] Last Admin: 04/12/17 09:55 Dose: 25 mg Magnesium Hydroxide (Milk Of Magnesia) 30 ml PO DAILY PRN PRN Reason: Other Last Admin: 04/06/17 02:47 Dose: 30 ml Metoprolol Tartrate (Lopressor) 25 mg PO Q12 [facility] Last Admin: 04/12/17 09:57 Dose: 25 mg Modafinil (Provigil) 200 mg PO DAILY [facility] Last Admin: 04/12/17 10:00 Dose: 200 mg Prednisone (Prednisone Tab) 5 mg PO DAILY [facility] Last Admin: 04/12/17 09:55 Dose: 5 mg Psyllium Hydrophilic Mucilloid (Hydrocil Instant) 1 pkt PO BID [facility] Last Admin: 04/12/17 09:56 Dose: 1 pkt Tramadol HCl (Ultram) 50 mg PO Q4 PRN PRN Reason: Pain, severe (8-10) Last Admin: 04/09/17 09:22 Dose: 50 mg Tramadol HCl (Ultram) 50 mg PO Q4 PRN PRN Reason: Pain, severe (8-10) - Labs Labs: 04/06/17 05:30 04/11/17 06:35 PT 12.5 Seconds (9.8-13.1) 04/06/17 06:45 INR 1.1 (0.9-1.2) 04/06/17 06:45 APTT 36.1 Seconds (25.6-37.1) 04/06/17 06:45 - Constitutional Appears: Non-toxic, No Acute Distress - Head Exam Head Exam: ATRAUMATIC, NORMOCEPHALIC - Eye Exam Eye Exam: EOMI, Normal appearance, PERRL - ENT Exam ENT Exam: Mucous Membranes Moist, Normal Exam - Neck Exam Neck Exam: Full ROM, Normal Inspection - Respiratory Exam Respiratory Exam: Clear to Ausculation Bilateral, NORMAL BREATHING PATTERN - Cardiovascular Exam Cardiovascular Exam: RRR, +S1, +S2 - GI/Abdominal Exam GI & Abdominal Exam: Soft, Normal Bowel Sounds - Extremities Exam Extremities Exam: Normal Capillary Refill, Normal Inspection - Neurological Exam Neurological Exam: Alert, Awake - Psychiatric Exam Psychiatric exam: Normal Affect, Normal Mood - Skin Skin Exam: Dry, Normal Color, Warm Assessment and Plan - Assessment and Plan (Free Text) Plan: 77 yo female with history of Chronic AFib/Flutter, CHF, HTN, CKD and Chronic Left Frontal CVA was admitted at [facility] [place] because of left sided weakness secondary to Acute Large MCA infarct. She was transferred to [facility] on and admitted to Acute Rehab for continued care and PT/OT. 1. Acute MCA CVA continue PT/OT 2. A Fib/Flutter rate controlled continue Metoprolol and Eliquis 3. Chronic CHF stable, denied SOB on Metoprolol and Amlodipine 4. CKD stable repeat BMP in am 5. HTN BP stable continue Metoprolol and Amlodipine 6. DVT Prophylaxis patient on Eliquis
[2017-04-13] MEDS: Aspirin 325 mg EC Tablets PO SCH (09:30)
[2017-04-13] MEDS: Psyllium Packet PO SCH ×2 (09:31→17:05)
[2017-04-14] MEDS: Psyllium Packet PO SCH ×2 (09:18→16:34)
[2017-04-14] MEDS: Aspirin 325 mg EC Tablets PO SCH (09:18)
--- NOTE | 2017-04-14 21:04 | CP.PCM.CON ---
History of Present Illness - History of Present Illness History of Present Illness: called for consult on acute rehab for 77 year old female who reportedly is exhibiting visual hallucinations Review of Systems - Review of Systems Systems not reviewed;Unavailable: Acuity of Condition - Constitutional Constitutional: As Per HPI - EENT Eyes: As Per HPI Ears: As Per HPI Nose/Mouth/Throat: As Per HPI - Breasts Breasts: As Per HPI - Cardiovascular Cardiovascular: As Per HPI - Respiratory Respiratory: As Per HPI - Gastrointestinal Gastrointestinal: As Per HPI - Genitourinary Genitourinary: As Per HPI - Reproductive: Female Reproductive:Female: As Per HPI - Musculoskeletal Musculoskeletal: As Per HPI - Integumentary Integumentary: As Per HPI - Neurological Neurological: As Per HPI - Psychiatric Psychiatric: Visual Hallucinations - Endocrine Endocrine: As Per HPI - Hematologic/Lymphatic Hematologic: As Per HPI Past Patient History - Past Medical History & Family History Past Medical History?: Yes - Past Social History Smoking Status: Never Smoked Chewing Tobacco Use: No Cigar Use: No Alcohol: None - CARDIAC Hx Cardiac Disorders: Yes Hx Congestive Heart Failure: Yes Hx Hypertension: Yes - PULMONARY Hx Respiratory Disorders: No - NEUROLOGICAL HX Cerebrovascular Accident: Yes - HEENT Hx HEENT Problems: No - RENAL Hx Chronic Kidney Disease: Yes Hx Renal (Kidney) Cancer: Yes - ENDOCRINE/METABOLIC Hx Hypothyroidism: Yes - HEMATOLOGICAL/ONCOLOGICAL Hx Cancer: Yes - INTEGUMENTARY Hx Dermatological Problems: No - MUSCULOSKELETAL/RHEUMATOLOGICAL Hx Musculoskeletal Disorders: No - GASTROINTESTINAL Hx Gastrointestinal Disorders: No - GENITOURINARY/GYNECOLOGICAL Hx Genitourinary Disorders: No - PSYCHIATRIC Hx Psychophysiologic Disorder: No Hx Hallucinations: Yes (visual hallucinations seeing bugs/birds) - SURGICAL HISTORY Hx Orthopedic Surgery: Yes (Right hip Fx surgery) Other/Comment: Right Nephrectomy - ANESTHESIA Hx Anesthesia: Yes Hx Anesthesia Reactions: No Meds Allergies/Adverse Reactions: Allergies Allergy/AdvReac Type Severity Reaction Status Date / Time No Known Allergies Allergy NONE Verified 04/05/17 21:51 - Medications Medications: Current Medications Acetaminophen (Tylenol 325mg Tab) 650 mg PO Q6 PRN PRN Reason: Other Last Admin: 04/13/17 12:58 Dose: 650 mg Amlodipine Besylate (Norvasc) 10 mg PO DAILY [facility] Last Admin: 04/14/17 09:20 Dose: 10 mg Apixaban (Eliquis) 2.5 mg PO BID [facility] PRN Reason: Protocol Last Admin: 04/14/17 16:32 Dose: 2.5 mg Aspirin (Ecotrin) 325 mg PO DAILY [facility] Last Admin: 04/14/17 09:18 Dose: 325 mg Atorvastatin Calcium (Lipitor) 20 mg PO HS [facility] Last Admin: 04/13/17 20:59 Dose: 20 mg Calcitriol (Rocaltrol) 0.25 mcg PO DAILY [facility] Last Admin: 04/14/17 09:21 Dose: 0.25 mcg Docusate Sodium (Colace) 100 mg PO BID [facility] Last Admin: 04/14/17 16:33 Dose: 100 mg Donepezil HCl (Aricept) 5 mg PO HS [facility] Last Admin: 04/13/17 20:59 Dose: 5 mg Ergocalciferol (Drisdol 50,000 Intl Units Cap) 1 cap PO .SATURDAY AND SATURDAY [facility] Famotidine (Pepcid) 20 mg PO BID [facility] Last Admin: 04/14/17 16:32 Dose: 20 mg Hydrocortisone (Anusol-Hc) 25 mg [place] BID [facility] Last Admin: 04/14/17 16:33 Dose: 25 mg Magnesium Hydroxide (Milk Of Magnesia) 30 ml PO DAILY PRN PRN Reason: Other Last Admin: 04/06/17 02:47 Dose: 30 ml Metoprolol Tartrate (Lopressor) 25 mg PO Q12 [facility] Last Admin: 04/14/17 09:20 Dose: 25 mg Modafinil (Provigil) 200 mg PO DAILY [facility] Last Admin: 04/14/17 11:12 Dose: 200 mg Prednisone (Prednisone Tab) 5 mg PO DAILY [facility] Last Admin: 04/14/17 09:21 Dose: 5 mg Psyllium Hydrophilic Mucilloid (Hydrocil Instant) 1 pkt PO BID [facility] Last Admin: 04/14/17 16:34 Dose: 1 pkt Tramadol HCl (Ultram) 50 mg PO Q4 PRN PRN Reason: Pain, severe (8-10) Last Admin: 04/09/17 09:22 Dose: 50 mg Tramadol HCl (Ultram) 50 mg PO Q4 PRN PRN Reason: Pain, severe (8-10) Physical Exam - Constitutional Appears: Chronically Ill - Eye Exam Additional comments: not making eye contact looking at bed rail, then pointing to wall and bed stating "you see the buds and birds are still there" - Psychiatric Exam Psychiatric exam: Flat Affect Additional comments: laying in hospital bed, hospital attire, not making eye contact, speech is soft , underproductive, thought process is confused at times, mood "I'm just fine", affect is constricted, positive psychomotor retardation, denies s/i,h/i, defers the reported seeing of birds and bugs as being in her mind, i/j impaired. 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 given that the pt. has experienced a reported cva the use of atypical antipsychotics should only be be considered when the pt's hallucinations appears to be significantly affect her LOF or quality of life. the use of atypical antipsychotics with individuals who have dementia increases the risk for cva and or (black box warning FDA). thank you for allowing us to participate in the provision of care for the patient. Repectfully yours. David Deluna, PhDc, MOLD BREAKER (2) Dementia Assessment and Plan: pt is already started on aricept 5mg. after the patient has been on aricept for one month consider increasing to 10mg once daily. May consider the addition of namenda 5mg po once daily for one week then 5mg po bid x 1 week, then 5mg po am and 10mg po pm x 1 week, then 10mg po bid thereafter. Status: Chronic
[2017-04-15] MEDS: Aspirin 325 mg EC Tablets PO SCH (08:09)
[2017-04-15] MEDS: Psyllium Packet PO SCH ×2 (08:09→17:20)
--- NOTE | 2017-04-15 15:22 | CP.PCM.PN ---
Subjective - Date & Time of Evaluation Date of Evaluation: 04/15/17 Time of Evaluation: 11:20 - Subjective Subjective: Pt seen and examined. Denied any complaint but wanted to go home. Objective - Vital Signs/Intake and Output Vital Signs (last 24 hours): Temp Pulse Resp BP Pulse Ox 97.3 F L 80 20 135/73 99 04/15/17 08:20 04/15/17 08:20 04/15/17 08:20 04/15/17 08:20 04/15/17 08:20 - Medications Medications: Current Medications Acetaminophen (Tylenol 325mg Tab) 650 mg PO Q6 PRN PRN Reason: Other Last Admin: 04/15/17 14:43 Dose: 650 mg Amlodipine Besylate (Norvasc) 10 mg PO DAILY [facility] Last Admin: 04/15/17 08:13 Dose: 10 mg Apixaban (Eliquis) 2.5 mg PO BID [facility] PRN Reason: Protocol Last Admin: 04/15/17 08:13 Dose: 2.5 mg Aspirin (Ecotrin) 325 mg PO DAILY [facility] Last Admin: 04/15/17 08:09 Dose: 325 mg Atorvastatin Calcium (Lipitor) 20 mg PO HS [facility] Last Admin: 04/14/17 21:13 Dose: 20 mg Calcitriol (Rocaltrol) 0.25 mcg PO DAILY [facility] Last Admin: 04/15/17 08:10 Dose: 0.25 mcg Docusate Sodium (Colace) 100 mg PO BID [facility] Last Admin: 04/15/17 08:10 Dose: 100 mg Donepezil HCl (Aricept) 5 mg PO HS [facility] Last Admin: 04/14/17 21:13 Dose: 5 mg Ergocalciferol (Drisdol 50,000 Intl Units Cap) 1 cap PO .SATURDAY AND SATURDAY [facility] Last Admin: 04/15/17 08:10 Dose: 1 cap Famotidine (Pepcid) 20 mg PO BID [facility] Last Admin: 04/15/17 08:14 Dose: 20 mg Hydrocortisone (Anusol-Hc) 25 mg [place] BID [facility] Last Admin: 04/15/17 08:16 Dose: Not Given Magnesium Hydroxide (Milk Of Magnesia) 30 ml PO DAILY PRN PRN Reason: Other Last Admin: 04/06/17 02:47 Dose: 30 ml Metoprolol Tartrate (Lopressor) 25 mg PO Q12 [facility] Last Admin: 04/15/17 08:10 Dose: 25 mg Modafinil (Provigil) 200 mg PO DAILY [facility] Last Admin: 04/15/17 08:15 Dose: 200 mg Prednisone (Prednisone Tab) 5 mg PO DAILY [facility] Last Admin: 04/15/17 08:13 Dose: 5 mg Psyllium Hydrophilic Mucilloid (Hydrocil Instant) 1 pkt PO BID [facility] Last Admin: 04/15/17 08:09 Dose: 1 pkt Tramadol HCl (Ultram) 50 mg PO Q4 PRN PRN Reason: Pain, severe (8-10) Last Admin: 04/09/17 09:22 Dose: 50 mg Tramadol HCl (Ultram) 50 mg PO Q4 PRN PRN Reason: Pain, severe (8-10) - Labs Labs: 04/06/17 05:30 04/11/17 06:35 PT 12.5 Seconds (9.8-13.1) 04/06/17 06:45 INR 1.1 (0.9-1.2) 04/06/17 06:45 APTT 36.1 Seconds (25.6-37.1) 04/06/17 06:45 - Constitutional Appears: No Acute Distress - Head Exam Head Exam: ATRAUMATIC - Eye Exam Eye Exam: absent: Scleral icterus - ENT Exam ENT Exam: Mucous Membranes Moist - Neck Exam Neck Exam: absent: Meningismus - Respiratory Exam Respiratory Exam: absent: Rhonchi, Wheezes, Respiratory Distress - Cardiovascular Exam Cardiovascular Exam: REGULAR RHYTHM, +S1, +S2 - GI/Abdominal Exam GI & Abdominal Exam: Soft. absent: Tenderness - Rectal Exam Rectal Exam: Deferred - Neurological Exam Neurological Exam: Alert, Oriented x3 - Psychiatric Exam Psychiatric exam: Normal Affect - Skin Skin Exam: Dry, Intact Assessment and Plan - Assessment and Plan (Free Text) Assessment: 77 yo female with history of Chronic AFib/Flutter, CHF, HTN, CKD and Chronic Left Frontal CVA was admitted at [facility] on 04/01/2017 because of left sided weakness secondary to Acute Large MCA infarct. She was transferred to [facility] on and admitted to Acute Rehab for continued care and PT/OT. 1. Acute MCA CVA continue PT/OT 2. A Fib/Flutter rate controlled continue Metoprolol and Eliquis 3. Chronic CHF asymptomatic continue Metoprolol and Amlodipine 4. CKD stable repeat BMP in am 5. HTN BP stable continue Metoprolol and Amlodipine 6. DVT Prophylaxis patient on Eliquis
[2017-04-16] MEDS: Psyllium Packet PO SCH ×2 (08:17→17:31)
[2017-04-16] MEDS: Aspirin 325 mg EC Tablets PO SCH (08:18)
--- NOTE | 2017-04-16 11:23 | CP.PCM.CON ---
History of Present Illness - History of Present Illness History of Present Illness: Mrs. Bolanos is a 77-year-old woman with a past medical history CHF, CKD, HTN and and chronic left frontal CVA and was admitted to the [facility] on 04/01/17 with a new right MCA stroke. She was transferred to [facility] for acute rehab. Over the weekend, the patient was noted to have visual hallucinations and delusions along with confusion. She was on the stimulant Modafinil and once it was stopped, she seemed to clear her sensorium. Currently, the patient is alert, oriented and awake without complaints. There were no acute events overnight. Review of Systems - Review of Systems All systems: reviewed and no additional remarkable complaints except Past Patient History - Past Medical History & Family History Past Medical History?: Yes - Past Social History Smoking Status: Never Smoked Chewing Tobacco Use: No Cigar Use: No Alcohol: None - CARDIAC Hx Cardiac Disorders: Yes Hx Congestive Heart Failure: Yes Hx Hypertension: Yes - PULMONARY Hx Respiratory Disorders: No - NEUROLOGICAL HX Cerebrovascular Accident: Yes - HEENT Hx HEENT Problems: No - RENAL Hx Chronic Kidney Disease: Yes Hx Renal (Kidney) Cancer: Yes - ENDOCRINE/METABOLIC Hx Hypothyroidism: Yes - HEMATOLOGICAL/ONCOLOGICAL Hx Cancer: Yes - INTEGUMENTARY Hx Dermatological Problems: No - MUSCULOSKELETAL/RHEUMATOLOGICAL Hx Musculoskeletal Disorders: No - GASTROINTESTINAL Hx Gastrointestinal Disorders: No - GENITOURINARY/GYNECOLOGICAL Hx Genitourinary Disorders: No - PSYCHIATRIC Hx Psychophysiologic Disorder: No Hx Hallucinations: Yes (visual hallucinations seeing bugs/birds) - SURGICAL HISTORY Hx Orthopedic Surgery: Yes (Right hip Fx surgery) Other/Comment: Right Nephrectomy - ANESTHESIA Hx Anesthesia: Yes Hx Anesthesia Reactions: No Meds Allergies/Adverse Reactions: Allergies Allergy/AdvReac Type Severity Reaction Status Date / Time No Known Allergies Allergy NONE Verified 04/05/17 21:51 - Medications Medications: Current Medications Acetaminophen (Tylenol 325mg Tab) 650 mg PO Q6 PRN PRN Reason: Other Last Admin: 04/15/17 14:43 Dose: 650 mg Amlodipine Besylate (Norvasc) 10 mg PO DAILY [facility] Last Admin: 04/16/17 08:19 Dose: 10 mg Apixaban (Eliquis) 2.5 mg PO BID [facility] PRN Reason: Protocol Last Admin: 04/16/17 08:18 Dose: 2.5 mg Aspirin (Ecotrin) 325 mg PO DAILY [facility] Last Admin: 04/16/17 08:18 Dose: 325 mg Atorvastatin Calcium (Lipitor) 20 mg PO HS [facility] Last Admin: 04/15/17 21:19 Dose: 20 mg Calcitriol (Rocaltrol) 0.25 mcg PO DAILY [facility] Last Admin: 04/16/17 08:18 Dose: 0.25 mcg Docusate Sodium (Colace) 100 mg PO BID [facility] Last Admin: 04/16/17 08:17 Dose: 100 mg Donepezil HCl (Aricept) 5 mg PO HS [facility] Last Admin: 04/15/17 21:19 Dose: 5 mg Ergocalciferol (Drisdol 50,000 Intl Units Cap) 1 cap PO .SATURDAY AND SATURDAY [facility] Last Admin: 04/15/17 08:10 Dose: 1 cap Famotidine (Pepcid) 20 mg PO BID [facility] Last Admin: 04/16/17 08:18 Dose: 20 mg Hydrocortisone (Anusol-Hc) 25 mg [place] BID [facility] Last Admin: 04/16/17 08:17 Dose: 25 mg Magnesium Hydroxide (Milk Of Magnesia) 30 ml PO DAILY PRN PRN Reason: Other Last Admin: 04/06/17 02:47 Dose: 30 ml Metoprolol Tartrate (Lopressor) 25 mg PO Q12 [facility] Last Admin: 04/16/17 08:18 Dose: 25 mg Prednisone (Prednisone Tab) 5 mg PO DAILY [facility] Last Admin: 04/16/17 08:19 Dose: 5 mg Psyllium Hydrophilic Mucilloid (Hydrocil Instant) 1 pkt PO BID [facility] Last Admin: 04/16/17 08:17 Dose: 1 pkt Tramadol HCl (Ultram) 50 mg PO Q4 PRN PRN Reason: Pain, severe (8-10) Last Admin: 04/09/17 09:22 Dose: 50 mg Tramadol HCl (Ultram) 50 mg PO Q4 PRN PRN Reason: Pain, severe (8-10) Results - Vital Signs Recent Vital Signs: Last Vital Signs Temp 97.4 F L 04/16/17 08:05 Pulse 72 04/16/17 09:30 Resp 18 04/16/17 08:05 BP 131/74 04/16/17 08:19 Pulse Ox 97 04/16/17 08:05 - Labs Result Diagrams: 04/06/17 05:30 04/11/17 06:35 Assessment & Plan (1) Encephalopathy Assessment and Plan: May have been related to medication effect; however, due to the acute onset and resolution along with the history of multiple infarcts, the patient should be evaluated with a CT scan to rule out hemorrhagic conversion (she's also on Eliquis), and an EEG to ensure she is not having interictal activity. Status: Acute (2) Ischemic stroke Assessment and Plan: Chronic at this point, but will continue secondary stroke prevention and risk factor management. Status: Chronic (3) Psychosis Assessment and Plan: Improved when stimulant was stopped. Avoid benzos, opiates or stimulants for now. Status: Resolved
--- NOTE | 2017-04-16 12:20 | PCM.EEG ---
Electroencephalogram Report - Electroencephalogram Report Procedure Date: 04/16/17 Interpretation: Indication: Encephalopathy and visual hallucinations. Medications were reviewed. This was an awake and drowsy EEG. Technical: This is a digitally recorded electroencephalogram. Eighteen channels of scalp EEG are recorded Another channel was used for for ECG. The data are stored digitally and reviewed in reformatted montages for optimal display. Diffuse Abnormality: No well formed alpha activity was seen. Mixed diffuse theta and delta activity was seen. Increased beta activity was seen intermittently. Focal abnormality: Intermittent focal slowing was seen. Periodic lateralized discharge was seen. This is seen over the Left hemisphere, as well as Right occipital. Impression: This EEG is abnormal. Diffuse slowing is seen, suggestive of a diffuse abnormality of the brain. Epileptiform discharge was seen. This can represent a potential seizure focus. Some focal slowing was seen, suggestive of a focal abnormality. Clinical correlation is needed.
--- NOTE | 2017-04-16 13:13 | PSY.TMCNF ---
Nursing - Vital Signs Vital Signs (Last 8 hours): Vital Signs 04/16/17 04/16/17 04/16/17 08:05 08:18 08:19 Temperature 97.4 F L Pulse Rate 69 69 Respiratory 18 Rate Blood Pressure 131/74 131/74 131/74 O2 Sat by Pulse 97 Oximetry 04/16/17 04/16/17 09:00 09:30 Temperature 97.4 F L Pulse Rate 72 72 Respiratory 18 Rate Blood Pressure 131/74 O2 Sat by Pulse Oximetry Pain: 0 - Precautions: Precautions: Fall Prevention - Medications/Other Issues Comment: (+) Recent episode of visual hallucinations, seen by psyche, and neuro. Provigil discontinued. - CT Scan of head and EEG done, result pending. - Consults Comment: Dr. Wilkins, Dr. Childress, Dr. Quinonez - Toileting Toileting: Supervision - Bladder Management Bladder Pattern: Normal Voiding Method: Toilet, Bedside Commode Bladder Management: Supervision Frequency of Accidents: 0 - Bowel Management Bowel Pattern: Normal Bowel Management: Supervision Frequency of Accidents: 0 - Transfers Transfers: Minimal Assistance - ADL's ADL's: Minimal Assistance - Patient/Family Teaching Comments: Care post CVA and safety precautions - Goals/Time Frame Comments: Per multidisciplinary care plans and goals - Provider Provider: Harika JEANN RN CRRN Physical Therapy - Bed Mobility Bed Mobility: Verbal Cues, Minimal Assistance Comment: vc for safety - Transfers Wheelchair to Mat: Verbal Cues, Contact Guard, Minimal Assistance Sit to Stand: Verbal Cues, Contact Guard, Minimal Assistance Comment: vc for safety and max encouragement to attempt ambulatory t/f; min A needed at times for safety during t/f - Ambulation Level of Assistance: Supervision, Verbal Cues, Contact Guard Distance (ft.): 150 Assistive Devices: Rolling Walker - Stair Negotiation Stairs: Level of Assistance: Verbal Cues, Contact Guard Number of Stairs: 6 Stairs: Assistive Devices: Right Handrail, Single point cane - Standing Balance Static Stand: Contact Guard Assist Dynamic Stand: Minimal Assistance Comment: w/ RW - Pain Pain (assessed during therapy session): 0 Comment: N/A - Insight/Carryover Insight/Carryover: Poor - Patient/Family Education Comment: Stroke education, DME, safety awareness, role of OT and rehab. - Assessment/Plan Assessment: Pt continues to have poor insight to deficits and current function and is resistant to all treatment. Therapist discussed with SW that pt would benefit from having early family education and training to ensure pt has appropraite assistance and home. Pt would benefit from continued services to maximize independence with ADLs and functional mobility and decrease caregiver burden, - Goals Timeframe: 1 week Goals: MOD I toileting. MOD I toilet txfer. S LE dressing. S UE dressing. bathing S. shower txfer S - Provider Therapist: Angelika Pratt, PT, DPT License Number: [id number] Occupational Therapy - Arousal/Attention/Orientation Level of Consciousness: Disoriented, Confused Patient Orientation: Person - ADL/IADL Self Feeding: Verbal Cues, Set-up Help, Minimal Assistance Grooming: Supervision, Verbal Cues, Set-up Help Dressing-Upper Extremity: Verbal Cues, Set-up Help, Minimal Assistance Dressing-Lower Extremity: Verbal Cues, Set-up Help, Minimal Assistance Comment: Patient requires increased time to initiate and terminate actions. She is noted to follow directions well when motivated by natural urges. Pt with perseverations to return to bed and at times adamently refuses to do tasks. - Sitting Balance Static Sitting: Supervision Dynamic Sitting: Requires supervision - Transfers Wheelchair to Bed Transfers: Supervision, Verbal Cues, Set-up Help Toilet Transfers: Supervision, Verbal Cues, Set-up Help - Upper Extremity Status Right Upper Extremity Comment: ROM WFL, strength impaired grossly Left Upper Extremity Comment: ROM WFL, strength impaired grossly, impaired dexerity - Pain Pain (assessed during therapy session): 0 Comment: N/A - Insight/Carryover Insight/Carryover: Poor - Patient/Family Education Comment: Stroke education, DME, safety awareness, role of OT and rehab. - Assessment/Plan Assessment: Pt continues to have poor insight to deficits and current function and is resistant to all treatment. Therapist discussed with SW that pt would benefit from having early family education and training to ensure pt has appropraite assistance and home. Pt would benefit from continued services to maximize independence with ADLs and functional mobility and decrease caregiver burden, - Goals Timeframe: 1 week Goals: MOD I toileting. MOD I toilet txfer. S LE dressing. S UE dressing. bathing S. shower txfer S - Provider Therapist: Kathy Alexander License Number: [id number] Speech Therapy - Consult Information Patient on Program: Yes Medical Diagnosis: CVA Treatment Diagnosis: MODERATE COGNITIVE-LINGUISTIC DEFICITS - Assessment Problem Solving Impairment: Moderate Memory Impairment: Moderate - Plan Assessment: Pt continues to have poor insight to deficits and current function and is resistant to all treatment. Therapist discussed with SW that pt would benefit from having early family education and training to ensure pt has appropraite assistance and home. Pt would benefit from continued services to maximize independence with ADLs and functional mobility and decrease caregiver burden, - Provider Therapist: Azul Greco License Number: [id number] Recreational Therapy - Participation Participation: Participates in Individual and/or Group Sessions - Attendance Attendance: Daily - Activities Leisure Activities: Bingo - Socialization Level of Socialization: Responds freely, but does not initiate - Diversional Time Diversional Time: bingo - Assessment Assessment/Plan: Pt continues to have poor insight to deficits and current function and is resistant to all treatment. Therapist discussed with SW that pt would benefit from having early family education and training to ensure pt has appropraite assistance and home. Pt would benefit from continued services to maximize independence with ADLs and functional mobility and decrease caregiver burden, - Provider Therapist: Nubia Foy, CATEGORY DEVELOPMENT ANALYST #[id number] Nutrition - Current Diet Current Diet/ Supplement/ Feedings: 2 gram Na Su[place]ena 8 ounces 2 per day - Appetite Percent Meal Consumed: 50-74% - Comments Comments: Care post CVA and safety precautions - Assessment/Goals/Time Frame Assessment/Goals/Time Frame: (+) Recent episode of visual hallucinations, seen by psyche, and neuro. Provigil discontinued. - CT Scan of head and EEG done, result pending. - Provider Provider: Amy Shannon RD Case Management - Psychosocial Assessment Support Systems: Daughter Guerita Christian C: [phone]. Son Israel C: [phone] Psychological Interventions/Needs: Patient is alert with confusion. Patient very resistent to therapy, requiring max encouragement to participate in therapy Discharge Concerns: Patient will likely require 24 hour supervision at home due problem solving deficits and imparied memory and insight into impairments Patient/Family Meeting: CM met with patient and rehab team Intervention/Goal/Outcome:: 1.Goal: Supervision overall. 2. Plan: Home with VNS and 24 hour supervision from INJECTION MOULDING MACHINE OPERATOR and grandson. 3. DME needs. 4. f/u appts. 5. grandson to come in for caregiver training next week. 6. Tentative discharge date: 04/24/2017. 7. continued emotional support - Discharge Plan Discharge Plan: Home with services Home Services: [facility] - Provider Provider: CARMELO Olmstead LSW License Number: [id number] Rehabilitation Plan - Treatment Plan Treatment Plan: Physical Therapy, Occupational Therapy, Speech, Dietary, Patient /Family Education - Discharge Plan Estimated Date of Discharge: 04/24/17 Discharge to: Home
--- NOTE | 2017-04-16 13:34 | CP.PCM.PN ---
Subjective - Date & Time of Evaluation Date of Evaluation: 04/16/17 Time of Evaluation: 13:32 - Subjective Subjective: Patient seen in room doing ok no longer with hallucinations denies headache eeg showed possible seizure focus neuro consultation pending ambulating 150' much improved hopeful d/c home 04/24/17 family was to come in for training but had a reason to cancel Objective - Vital Signs/Intake and Output Vital Signs (last 24 hours): Temp Pulse Resp BP Pulse Ox 97.4 F L 72 18 131/74 97 04/16/17 09:00 04/16/17 09:30 04/16/17 09:00 04/16/17 09:00 04/16/17 08:05 - Medications Medications: Current Medications Acetaminophen (Tylenol 325mg Tab) 650 mg PO Q6 PRN PRN Reason: Other Last Admin: 04/15/17 14:43 Dose: 650 mg Amlodipine Besylate (Norvasc) 10 mg PO DAILY [facility] Last Admin: 04/16/17 08:19 Dose: 10 mg Apixaban (Eliquis) 2.5 mg PO BID [facility] PRN Reason: Protocol Last Admin: 04/16/17 08:18 Dose: 2.5 mg Aspirin (Ecotrin) 325 mg PO DAILY [facility] Last Admin: 04/16/17 08:18 Dose: 325 mg Atorvastatin Calcium (Lipitor) 20 mg PO HS [facility] Last Admin: 04/15/17 21:19 Dose: 20 mg Calcitriol (Rocaltrol) 0.25 mcg PO DAILY [facility] Last Admin: 04/16/17 08:18 Dose: 0.25 mcg Divalproex Sodium (Depakote Er(Once Daily)) 500 mg PO DAILY [facility] Docusate Sodium (Colace) 100 mg PO BID [facility] Last Admin: 04/16/17 08:17 Dose: 100 mg Donepezil HCl (Aricept) 5 mg PO HS [facility] Last Admin: 04/15/17 21:19 Dose: 5 mg Ergocalciferol (Drisdol 50,000 Intl Units Cap) 1 cap PO .SATURDAY AND SATURDAY [facility] Last Admin: 04/15/17 08:10 Dose: 1 cap Famotidine (Pepcid) 20 mg PO BID [facility] Last Admin: 04/16/17 08:18 Dose: 20 mg Hydrocortisone (Anusol-Hc) 25 mg MA BID [facility] Last Admin: 04/16/17 08:17 Dose: 25 mg Magnesium Hydroxide (Milk Of Magnesia) 30 ml PO DAILY PRN PRN Reason: Other Last Admin: 04/06/17 02:47 Dose: 30 ml Metoprolol Tartrate (Lopressor) 25 mg PO Q12 [facility] Last Admin: 04/16/17 08:18 Dose: 25 mg Prednisone (Prednisone Tab) 5 mg PO DAILY [facility] Last Admin: 04/16/17 08:19 Dose: 5 mg Psyllium Hydrophilic Mucilloid (Hydrocil Instant) 1 pkt PO BID [facility] Last Admin: 04/16/17 08:17 Dose: 1 pkt Tramadol HCl (Ultram) 50 mg PO Q4 PRN PRN Reason: Pain, severe (8-10) Last Admin: 04/09/17 09:22 Dose: 50 mg Tramadol HCl (Ultram) 50 mg PO Q4 PRN PRN Reason: Pain, severe (8-10) - Labs Labs: 04/06/17 05:30 04/11/17 06:35 PT 12.5 Seconds (9.8-13.1) 04/06/17 06:45 INR 1.1 (0.9-1.2) 04/06/17 06:45 APTT 36.1 Seconds (25.6-37.1) 04/06/17 06:45
--- NOTE | 2017-04-16 13:45 | CT ---
PROCEDURE: CT HEAD WITHOUT CONTRAST. HISTORY: stroke and hallucinations COMPARISON: None available. TECHNIQUE: Axial computed tomography images were obtained through the head/brain without intravenous contrast. Radiation dose: Total exam DLP = 826.47 mGy-cm. This CT exam was performed using one or more of the following dose reduction techniques: Automated exposure control, adjustment of the mA and/or kV according to patient size, and/or use of iterative reconstruction technique. FINDINGS: HEMORRHAGE: No intracranial hemorrhage. BRAIN: There is extensive vasogenic edema in the right parietal and temporal lobes with mild mass effect on the right lateral ventricle. There is also effacement of the cortical sulci and approximately 3 mm midline shift from right to left. There is also extensive vasogenic edema in the left frontal and anterior parietal lobes. VENTRICLES: No hydrocephalus. CALVARIUM: The skull base and calvarium are normal. PARANASAL SINUSES: There is mild mucosal thickening in the right maxillary sinus. The remaining included maxillary sinuses are clear. MASTOID AIR CELLS: Predominantly clear. OTHER FINDINGS: None. IMPRESSION: Multifocal vasogenic edema in the right parietal and temporal lobes and left frontal and anterior parietal lobes, worse on the right with approximately 3 mm midline shift from right to left. The differential considerations include metastasis, lymphoma, multifocal leukoencephalopathy amongst others. A dedicated MRI of the brain without and with intravenous contrast is recommended for further evaluation.
[2017-04-16] MEDS: Divalproex 500 mg ER (ONCE DAILY formulation) PO SCH (14:00)
[2017-04-17] MEDS: Divalproex 500 mg ER (ONCE DAILY formulation) PO SCH (09:00)
[2017-04-17] MEDS: Psyllium Packet PO SCH ×2 (09:28→17:40)
[2017-04-17] MEDS: Aspirin 325 mg EC Tablets PO SCH (09:29)
--- NOTE | 2017-04-17 10:30 | CP.PCM.PN ---
Subjective - Date & Time of Evaluation Date of Evaluation: 04/17/17 Time of Evaluation: 10:28 - Subjective Subjective: Ms. Bolanos was seen and examined at the bedside. She is alert, responsive with left eye neglect. She denies any headache, dizziness, lightheadedness. There is no untoward events overnight. Objective - Vital Signs/Intake and Output Vital Signs (last 24 hours): Temp Pulse Resp BP Pulse Ox 97.4 F L 61 20 133/61 100 04/17/17 08:29 04/17/17 09:28 04/17/17 08:29 04/17/17 09:29 04/17/17 08:29 - Medications Medications: Current Medications Acetaminophen (Tylenol 325mg Tab) 650 mg PO Q6 PRN PRN Reason: Other Last Admin: 04/15/17 14:43 Dose: 650 mg Amlodipine Besylate (Norvasc) 10 mg PO DAILY [facility] Last Admin: 04/17/17 09:29 Dose: 10 mg Apixaban (Eliquis) 2.5 mg PO BID [facility] PRN Reason: Protocol Last Admin: 04/17/17 09:28 Dose: 2.5 mg Aspirin (Ecotrin) 325 mg PO DAILY [facility] Last Admin: 04/17/17 09:29 Dose: 325 mg Atorvastatin Calcium (Lipitor) 20 mg PO HS [facility] Last Admin: 04/16/17 21:20 Dose: 20 mg Calcitriol (Rocaltrol) 0.25 mcg PO DAILY [facility] Last Admin: 04/17/17 09:29 Dose: 0.25 mcg Divalproex Sodium (Depakote Er(Once Daily)) 500 mg PO DAILY [facility] Last Admin: 04/16/17 14:00 Dose: 500 mg Docusate Sodium (Colace) 100 mg PO BID [facility] Last Admin: 04/17/17 09:29 Dose: 100 mg Donepezil HCl (Aricept) 5 mg PO HS [facility] Last Admin: 04/16/17 21:20 Dose: 5 mg Ergocalciferol (Drisdol 50,000 Intl Units Cap) 1 cap PO .SATURDAY AND SATURDAY [facility] Last Admin: 04/15/17 08:10 Dose: 1 cap Famotidine (Pepcid) 20 mg PO BID [facility] Last Admin: 04/17/17 09:29 Dose: 20 mg Hydrocortisone (Anusol-Hc) 25 mg NE BID [facility] Last Admin: 04/17/17 09:29 Dose: 25 mg Magnesium Hydroxide (Milk Of Magnesia) 30 ml PO DAILY PRN PRN Reason: Other Last Admin: 04/06/17 02:47 Dose: 30 ml Metoprolol Tartrate (Lopressor) 25 mg PO Q12 [facility] Last Admin: 04/17/17 09:28 Dose: 25 mg Prednisone (Prednisone Tab) 5 mg PO DAILY [facility] Last Admin: 04/17/17 09:28 Dose: 5 mg Psyllium Hydrophilic Mucilloid (Hydrocil Instant) 1 pkt PO BID [facility] Last Admin: 04/17/17 09:28 Dose: 1 pkt Tramadol HCl (Ultram) 50 mg PO Q4 PRN PRN Reason: Pain, severe (8-10) Last Admin: 04/09/17 09:22 Dose: 50 mg - Labs Labs: 04/06/17 05:30 04/11/17 06:35 PT 12.5 Seconds (9.8-13.1) 04/06/17 06:45 INR 1.1 (0.9-1.2) 04/06/17 06:45 APTT 36.1 Seconds (25.6-37.1) 04/06/17 06:45 - Head Exam Head Exam: ATRAUMATIC, NORMAL INSPECTION, NORMOCEPHALIC - ENT Exam Additional comments: left eye neglect. - Neurological Exam Neurological Exam: Alert, Awake, Oriented x3 Neuro motor strength exam: Left Upper Extremity: 5, Right Upper Extremity: 5, Left Lower Extremity: 5, Right Lower Extremity: 5 Additional comments: She is able to respond to question appropriately and follow commands. Assessment and Plan (1) Encephalopathy Assessment & Plan: Case discussed with Dr. Wilkins, follow up MRI of the brain without contrast. Unable to do with contrast due to patient's elevated BUN and creatinine level, also low GFR. Status: Acute
--- NOTE | 2017-04-17 12:36 | MRI ---
PROCEDURE: MRI BRAIN WITHOUT CONTRAST HISTORY: CVA COMPARISON: Noncontrast head CT from 04/16/2017. TECHNIQUE: Multiplanar, multisequence MR images of the brain were obtained without intravenous contrast enhancement. FINDINGS: HEMORRHAGE: There are curvilinear areas of T1 hyperintensity with corresponding increased magnetic susceptibility in the right parietal and temporal lobes. DWI: No evidence of an acute or early subacute infarction. BRAIN PARENCHYMA: There is extensive subcortical T2/FLAIR hyperintensity in the right posterior parietal and temporal lobes. There is also subcortical increased T2/FLAIR hyperintensity in the left frontal and anterior parietal lobes. There are mild chronic microangiopathic changes. The midline sagittal structures are normal. VENTRICLES: There is mild global parenchymal volume loss and proportionate enlargement of the ventricles and cortical sulci. CRANIUM: There is normal bone marrow signal pattern. ORBITS: Grossly unremarkable. PARANASAL SINUSES/MASTOIDS: There is mild polypoid mucosal thickening in the right maxillary sinus. The remaining included paranasal sinuses and mastoid air cells are predominantly clear. VASCULAR SYSTEM: There are normal signal voids in the larger intracranial arteries. OTHER FINDINGS: None. IMPRESSION: 1. No MRI evidence for acute stroke. 2. 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 Although findings could be related to gliosis from remote infarction, other differential considerations as described on prior CT examination cannot be entirely excluded given lack of significant volume loss. MRI with intravenous contrast is recommended for definitive evaluation.
--- NOTE | 2017-04-17 17:09 | CP.PCM.PN ---
Subjective - Date & Time of Evaluation Date of Evaluation: 04/17/17 Time of Evaluation: 14:20 - Subjective Subjective: Pt seen and examined. Denied any complaint but appeared tired and depress. As per therapist, very poorly motivated with activities. Objective - Vital Signs/Intake and Output Vital Signs (last 24 hours): Temp Pulse Resp BP Pulse Ox 97.4 F L 61 20 133/61 100 04/17/17 08:29 04/17/17 09:28 04/17/17 08:29 04/17/17 09:29 04/17/17 08:29 - Medications Medications: Current Medications Acetaminophen (Tylenol 325mg Tab) 650 mg PO Q6 PRN PRN Reason: Other Last Admin: 04/15/17 14:43 Dose: 650 mg Amlodipine Besylate (Norvasc) 10 mg PO DAILY [facility] Last Admin: 04/17/17 09:29 Dose: 10 mg Apixaban (Eliquis) 2.5 mg PO BID [facility] PRN Reason: Protocol Last Admin: 04/17/17 09:28 Dose: 2.5 mg Aspirin (Ecotrin) 325 mg PO DAILY [facility] Last Admin: 04/17/17 09:29 Dose: 325 mg Atorvastatin Calcium (Lipitor) 20 mg PO HS [facility] Last Admin: 04/16/17 21:20 Dose: 20 mg Calcitriol (Rocaltrol) 0.25 mcg PO DAILY [facility] Last Admin: 04/17/17 09:29 Dose: 0.25 mcg Divalproex Sodium (Depakote Er(Once Daily)) 500 mg PO DAILY [facility] Last Admin: 04/17/17 09:00 Dose: 500 mg Docusate Sodium (Colace) 100 mg PO BID [facility] Last Admin: 04/17/17 09:29 Dose: 100 mg Donepezil HCl (Aricept) 5 mg PO HS [facility] Last Admin: 04/16/17 21:20 Dose: 5 mg Ergocalciferol (Drisdol 50,000 Intl Units Cap) 1 cap PO .SATURDAY AND SATURDAY [facility] Last Admin: 04/15/17 08:10 Dose: 1 cap Famotidine (Pepcid) 20 mg PO BID [facility] Last Admin: 04/17/17 09:29 Dose: 20 mg Hydrocortisone (Anusol-Hc) 25 mg [place] BID [facility] Last Admin: 04/17/17 09:29 Dose: 25 mg Magnesium Hydroxide (Milk Of Magnesia) 30 ml PO DAILY PRN PRN Reason: Other Last Admin: 04/06/17 02:47 Dose: 30 ml Metoprolol Tartrate (Lopressor) 25 mg PO Q12 [facility] Last Admin: 04/17/17 09:28 Dose: 25 mg Prednisone (Prednisone Tab) 5 mg PO DAILY [facility] Last Admin: 04/17/17 09:28 Dose: 5 mg Psyllium Hydrophilic Mucilloid (Hydrocil Instant) 1 pkt PO BID [facility] Last Admin: 04/17/17 09:28 Dose: 1 pkt Tramadol HCl (Ultram) 50 mg PO Q4 PRN PRN Reason: Pain, severe (8-10) Last Admin: 04/09/17 09:22 Dose: 50 mg - Labs Labs: 04/06/17 05:30 04/11/17 06:35 PT 12.5 Seconds (9.8-13.1) 04/06/17 06:45 INR 1.1 (0.9-1.2) 04/06/17 06:45 APTT 36.1 Seconds (25.6-37.1) 04/06/17 06:45 - Constitutional Appears: No Acute Distress - Head Exam Head Exam: ATRAUMATIC - Eye Exam Eye Exam: absent: Scleral icterus - ENT Exam ENT Exam: Mucous Membranes Moist - Neck Exam Neck Exam: absent: Meningismus - Respiratory Exam Respiratory Exam: absent: Rhonchi, Wheezes, Respiratory Distress - Cardiovascular Exam Cardiovascular Exam: REGULAR RHYTHM, +S1, +S2 - GI/Abdominal Exam GI & Abdominal Exam: Soft. absent: Tenderness - Rectal Exam Rectal Exam: Deferred - Neurological Exam Neurological Exam: Alert - Psychiatric Exam Psychiatric exam: Depressed, Flat Affect - Skin Skin Exam: Dry, Intact Assessment and Plan - Assessment and Plan (Free Text) Assessment: 77 yo female with history of Chronic AFib/Flutter, CHF, HTN, CKD and Chronic Left Frontal CVA was admitted at [facility] on 04/01/2017 because of left sided weakness secondary to Acute Large MCA infarct. She was transferred to [facility] on and admitted to [facility] for continued care and PT/OT. 1. Acute MCA CVA very poorly motivated with therapy CT scan/MRI of the head: multifocal vasogenic edema in right parietal and temporal lobes and left frontal and anterior parietal lobes, worse on the right side with midline shift from right to left follow up consult with Dr Wilkins 2. A Fib/Flutter rate controlled continue Metoprolol and Eliquis 3. Chronic CHF asymptomatic continue Metoprolol and Amlodipine 4. CKD improving BUN/creat: 48/2.5 5. HTN BP stable continue Metoprolol and Amlodipine 6. DVT Prophylaxis patient on Eliquis
--- NOTE | 2017-04-17 17:10 | CP.PCM.PN ---
Subjective - Date & Time of Evaluation Date of Evaluation: 04/17/17 Time of Evaluation: 17:09 - Subjective Subjective: Patient seen in room tired able to do well in PT though with 150' x4 with CGA and RW continue current care still left neglect Objective - Vital Signs/Intake and Output Vital Signs (last 24 hours): Temp Pulse Resp BP Pulse Ox 97.4 F L 61 20 133/61 100 04/17/17 08:29 04/17/17 09:28 04/17/17 08:29 04/17/17 09:29 04/17/17 08:29 - Medications Medications: Current Medications Acetaminophen (Tylenol 325mg Tab) 650 mg PO Q6 PRN PRN Reason: Other Last Admin: 04/15/17 14:43 Dose: 650 mg Amlodipine Besylate (Norvasc) 10 mg PO DAILY [facility] Last Admin: 04/17/17 09:29 Dose: 10 mg Apixaban (Eliquis) 2.5 mg PO BID [facility] PRN Reason: Protocol Last Admin: 04/17/17 09:28 Dose: 2.5 mg Aspirin (Ecotrin) 325 mg PO DAILY [facility] Last Admin: 04/17/17 09:29 Dose: 325 mg Atorvastatin Calcium (Lipitor) 20 mg PO HS [facility] Last Admin: 04/16/17 21:20 Dose: 20 mg Calcitriol (Rocaltrol) 0.25 mcg PO DAILY [facility] Last Admin: 04/17/17 09:29 Dose: 0.25 mcg Divalproex Sodium (Depakote Er(Once Daily)) 500 mg PO DAILY [facility] Last Admin: 04/17/17 09:00 Dose: 500 mg Docusate Sodium (Colace) 100 mg PO BID [facility] Last Admin: 04/17/17 09:29 Dose: 100 mg Donepezil HCl (Aricept) 5 mg PO HS [facility] Last Admin: 04/16/17 21:20 Dose: 5 mg Ergocalciferol (Drisdol 50,000 Intl Units Cap) 1 cap PO .SATURDAY AND SATURDAY [facility] Last Admin: 04/15/17 08:10 Dose: 1 cap Famotidine (Pepcid) 20 mg PO BID [facility] Last Admin: 04/17/17 09:29 Dose: 20 mg Hydrocortisone (Anusol-Hc) 25 mg [place] BID [facility] Last Admin: 04/17/17 09:29 Dose: 25 mg Magnesium Hydroxide (Milk Of Magnesia) 30 ml PO DAILY PRN PRN Reason: Other Last Admin: 04/06/17 02:47 Dose: 30 ml Metoprolol Tartrate (Lopressor) 25 mg PO Q12 [facility] Last Admin: 04/17/17 09:28 Dose: 25 mg Prednisone (Prednisone Tab) 5 mg PO DAILY [facility] Last Admin: 04/17/17 09:28 Dose: 5 mg Psyllium Hydrophilic Mucilloid (Hydrocil Instant) 1 pkt PO BID [facility] Last Admin: 04/17/17 09:28 Dose: 1 pkt Tramadol HCl (Ultram) 50 mg PO Q4 PRN PRN Reason: Pain, severe (8-10) Last Admin: 04/09/17 09:22 Dose: 50 mg - Labs Labs: 04/06/17 05:30 04/11/17 06:35 PT 12.5 Seconds (9.8-13.1) 04/06/17 06:45 INR 1.1 (0.9-1.2) 04/06/17 06:45 APTT 36.1 Seconds (25.6-37.1) 04/06/17 06:45
[2017-04-18] MEDS: Psyllium Packet PO SCH ×2 (09:05→17:34)
[2017-04-18] MEDS: Divalproex 500 mg ER (ONCE DAILY formulation) PO SCH (09:07)
[2017-04-18] MEDS: Aspirin 325 mg EC Tablets PO SCH (09:08)
--- NOTE | 2017-04-18 13:43 | CP.PCM.PN ---
Subjective - Date & Time of Evaluation Date of Evaluation: 04/18/17 Time of Evaluation: 13:40 - Subjective Subjective: Ms. Bolanos was seen and examined during therapy session. She is alert, responsive to both verbal and tactile stimuli. She denies any headache, dizziness, numbness, weakness, nausea, or vomiting. She is not in any kind of distress. There was no untoward events overnight. Objective - Vital Signs/Intake and Output Vital Signs (last 24 hours): Temp Pulse Resp BP Pulse Ox 97.9 F 69 18 121/66 98 04/18/17 08:47 04/18/17 09:06 04/18/17 08:47 04/18/17 09:06 04/18/17 08:47 - Medications Medications: Current Medications Acetaminophen (Tylenol 325mg Tab) 650 mg PO Q6 PRN PRN Reason: Other Last Admin: 04/15/17 14:43 Dose: 650 mg Amlodipine Besylate (Norvasc) 10 mg PO DAILY [facility] Last Admin: 04/18/17 09:06 Dose: 10 mg Apixaban (Eliquis) 2.5 mg PO BID [facility] PRN Reason: Protocol Last Admin: 04/18/17 09:07 Dose: 2.5 mg Aspirin (Ecotrin) 325 mg PO DAILY [facility] Last Admin: 04/18/17 09:08 Dose: 325 mg Atorvastatin Calcium (Lipitor) 20 mg PO HS [facility] Last Admin: 04/17/17 21:45 Dose: 20 mg Calcitriol (Rocaltrol) 0.25 mcg PO DAILY [facility] Last Admin: 04/18/17 09:05 Dose: 0.25 mcg Divalproex Sodium (Depakote Er(Once Daily)) 500 mg PO DAILY [facility] Last Admin: 04/18/17 09:07 Dose: 500 mg Docusate Sodium (Colace) 100 mg PO BID [facility] Last Admin: 04/18/17 09:05 Dose: 100 mg Donepezil HCl (Aricept) 5 mg PO HS [facility] Last Admin: 04/17/17 21:45 Dose: 5 mg Ergocalciferol (Drisdol 50,000 Intl Units Cap) 1 cap PO .SATURDAY AND SATURDAY [facility] Last Admin: 04/15/17 08:10 Dose: 1 cap Famotidine (Pepcid) 20 mg PO BID [facility] Last Admin: 04/18/17 09:06 Dose: 20 mg Hydrocortisone (Anusol-Hc) 25 mg [place] BID [facility] Last Admin: 04/18/17 09:08 Dose: 25 mg Magnesium Hydroxide (Milk Of Magnesia) 30 ml PO DAILY [facility] PRN Reason: Other Last Admin: 04/06/17 02:47 Dose: 30 ml Metoprolol Tartrate (Lopressor) 25 mg PO Q12 [facility] Last Admin: 04/18/17 09:05 Dose: 25 mg Prednisone (Prednisone Tab) 5 mg PO DAILY [facility] Last Admin: 04/18/17 09:05 Dose: 5 mg Psyllium Hydrophilic Mucilloid (Hydrocil Instant) 1 pkt PO BID [facility] Last Admin: 04/18/17 09:05 Dose: 1 pkt Tramadol HCl (Ultram) 50 mg PO Q4 PRN PRN Reason: Pain, severe (8-10) Last Admin: 04/09/17 09:22 Dose: 50 mg - Labs Labs: 04/06/17 05:30 04/11/17 06:35 PT 12.5 Seconds (9.8-13.1) 04/06/17 06:45 INR 1.1 (0.9-1.2) 04/06/17 06:45 APTT 36.1 Seconds (25.6-37.1) 04/06/17 06:45 - Constitutional Appears: No Acute Distress - Head Exam Head Exam: ATRAUMATIC, NORMAL INSPECTION, NORMOCEPHALIC - ENT Exam Additional comments: left eye neglect. - Neurological Exam Neurological Exam: Alert, Awake, Oriented x3 Neuro motor strength exam: Left Upper Extremity: 5, Right Upper Extremity: 5, Left Lower Extremity: 5, Right Lower Extremity: 5 Additional comments: Neurological unchanged from previous examination. Assessment and Plan (1) Encephalopathy Assessment & Plan: Case discussed with Dr. Wilkins, continue all current medical, physical, occupational, and speech therapies. There is no new recommendations from neurology. Status: Acute
--- NOTE | 2017-04-18 18:22 | CP.PCM.PN ---
Subjective - Date & Time of Evaluation Date of Evaluation: 04/18/17 Time of Evaluation: 18:20 - Subjective Subjective: Patient is doing ok but not safe to be going home son has not stepped up and come for training will therefore unfortunately need to discharge to [facility] which was not the overall goal as we expected there to be more assistance for her on discharge She has nonetheless done well in therapies and will hopefully continue to make needed gains Objective - Vital Signs/Intake and Output Vital Signs (last 24 hours): Temp Pulse Resp BP Pulse Ox 97.9 F 62 18 121/66 98 04/18/17 08:47 04/18/17 16:26 04/18/17 08:47 04/18/17 09:06 04/18/17 08:47 - Medications Medications: Current Medications Acetaminophen (Tylenol 325mg Tab) 650 mg PO Q6 PRN PRN Reason: Other Last Admin: 04/15/17 14:43 Dose: 650 mg Amlodipine Besylate (Norvasc) 10 mg PO DAILY [facility] Last Admin: 04/18/17 09:06 Dose: 10 mg Apixaban (Eliquis) 2.5 mg PO BID [facility] PRN Reason: Protocol Last Admin: 04/18/17 17:34 Dose: 2.5 mg Aspirin (Ecotrin) 325 mg PO DAILY [facility] Last Admin: 04/18/17 09:08 Dose: 325 mg Atorvastatin Calcium (Lipitor) 20 mg PO HS [facility] Last Admin: 04/17/17 21:45 Dose: 20 mg Calcitriol (Rocaltrol) 0.25 mcg PO DAILY [facility] Last Admin: 04/18/17 09:05 Dose: 0.25 mcg Divalproex Sodium (Depakote Er(Once Daily)) 500 mg PO DAILY [facility] Last Admin: 04/18/17 09:07 Dose: 500 mg Docusate Sodium (Colace) 100 mg PO BID [facility] Last Admin: 04/18/17 17:34 Dose: 100 mg Donepezil HCl (Aricept) 5 mg PO HS [facility] Last Admin: 04/17/17 21:45 Dose: 5 mg Ergocalciferol (Drisdol 50,000 Intl Units Cap) 1 cap PO .SATURDAY AND SATURDAY [facility] Last Admin: 04/15/17 08:10 Dose: 1 cap Famotidine (Pepcid) 20 mg PO BID [facility] Last Admin: 04/18/17 17:34 Dose: 20 mg Hydrocortisone (Anusol-Hc) 25 mg [place] BID [facility] Last Admin: 04/18/17 17:34 Dose: 25 mg Magnesium Hydroxide (Milk Of Magnesia) 30 ml PO DAILY PRN PRN Reason: Other Last Admin: 04/06/17 02:47 Dose: 30 ml Metoprolol Tartrate (Lopressor) 25 mg PO Q12 [facility] Last Admin: 04/18/17 09:05 Dose: 25 mg Prednisone (Prednisone Tab) 5 mg PO DAILY [facility] Last Admin: 04/18/17 09:05 Dose: 5 mg Psyllium Hydrophilic Mucilloid (Hydrocil Instant) 1 pkt PO BID [facility] Last Admin: 04/18/17 17:34 Dose: 1 pkt Tramadol HCl (Ultram) 50 mg PO Q4 PRN PRN Reason: Pain, severe (8-10) Last Admin: 04/09/17 09:22 Dose: 50 mg - Labs Labs: 04/06/17 05:30 04/11/17 06:35 PT 12.5 Seconds (9.8-13.1) 04/06/17 06:45 INR 1.1 (0.9-1.2) 04/06/17 06:45 APTT 36.1 Seconds (25.6-37.1) 04/06/17 06:45
[2017-04-19 00:09] VITALS: O2SAT 100
[2017-04-19] MEDS: Divalproex 500 mg ER (ONCE DAILY formulation) PO SCH (09:07)
[2017-04-19] MEDS: Aspirin 325 mg EC Tablets PO SCH (09:07)
[2017-04-19] MEDS: Psyllium Packet PO SCH (09:07)
[2017-04-19 09:11] VITALS: BP 130/88; PULSE 77
[2017-04-19 09:19] VITALS: RESP 18; TEMP 97.7
--- NOTE | 2017-04-19 10:22 | CP.PCM.DIS ---
Provider - Provider Date of Admission: 04/05/17 21:52 Attending physician: Herminio Dawn Time Spent in preparation of Discharge (in minutes): 30 Hospital Course - Lab Results Lab Results: Most Recent Lab Values WBC 9.7 K/uL (4.8-10.8) 04/06/17 05:30 RBC 4.00 Mil/uL (3.80-5.20) 04/06/17 05:30 Hgb 12.4 g/dL (12.0-16.0) 04/06/17 05:30 Hct 38.9 % (34.0-47.0) 04/06/17 05:30 MCV 97.5 fl (81.0-99.0) 04/06/17 05:30 MCH 31.0 pg (27.0-31.0) 04/06/17 05:30 MCHC 31.8 g/dL (33.0-37.0) L 04/06/17 05:30 RDW 13.2 % (11.5-14.5) 04/06/17 05:30 Plt Count 230 K/uL (130-400) 04/06/17 05:30 PT 12.5 Seconds (9.8-13.1) 04/06/17 06:45 INR 1.1 (0.9-1.2) 04/06/17 06:45 APTT 36.1 Seconds (25.6-37.1) 04/06/17 06:45 Sodium 137 mmol/l (132-148) 04/11/17 06:35 Potassium 4.2 MMOL/L (3.6-5.0) 04/11/17 06:35 Chloride 104 mmol/L (98-107) 04/11/17 06:35 Carbon Dioxide 23 mmol/L (22-30) 04/11/17 06:35 Anion Gap 14 (10-20) 04/11/17 06:35 BUN 48 mg/dl (7-17) H 04/11/17 06:35 Creatinine 2.5 mg/dL (0.7-1.2) H 04/11/17 06:35 Est GFR ( Amer) 23 04/11/17 06:35 Est GFR (Non-Af Amer) 19 04/11/17 06:35 POC Glucose (mg/dL) 158 mg/dL (65-110) H 04/08/17 11:35 Random Glucose 93 mg/dL (65-105) 04/11/17 06:35 Calcium 9.2 mg/dL (8.4-10.2) 04/11/17 06:35 Total Bilirubin 0.6 mg/dl (0.2-1.3) 04/06/17 05:30 AST 34 U/L (14-36) 04/06/17 05:30 ALT 30 U/L (9-52) 04/06/17 05:30 Alkaline Phosphatase 65 U/L (38-126) 04/06/17 05:30 Troponin I 0.0340 ng/mL (0.00-0.120) 04/08/17 11:45 Total Protein 7.3 G/DL (6.3-8.2) 04/06/17 05:30 Albumin 4.0 g/dL (3.5-5.0) 04/06/17 05:30 Globulin 3.3 gm/dL (2.2-3.9) 04/06/17 05:30 Albumin/Globulin Ratio 1.2 (1.0-2.1) 04/06/17 05:30 - Hospital Course Hospital Course: 77 yo female with history of Chronic AFib/Flutter, CHF, HTN, CKD and Chronic Left Frontal CVA was admitted at [facility] on 04/01/2017 because of left sided weakness secondary to Acute Large MCA infarct. She was transferred to [facility] on and admitted to Acute Rehab for continued care and PT/OT. REFUSES TO PARTICIPATE IN REHAB. FOR DC TO [facility] TODAY. STABLE TO BE DC TO [facility]. 1. Acute MCA CVA very poorly motivated with therapy CT scan/MRI of the head: multifocal vasogenic edema in right parietal and temporal lobes and left frontal and anterior parietal lobes, worse on the right side with midline shift from right to left follow up consult with Dr Wilkins 2. A Fib/Flutter rate controlled continue Metoprolol and Eliquis 3. Chronic CHF asymptomatic continue Metoprolol and Amlodipine 4. CKD improving BUN/creat: 48/2.5 5. HTN BP stable continue Metoprolol and Amlodipine 6. DVT Prophylaxis patient on Eliquis Discharge Exam - Head Exam Head Exam: ATRAUMATIC, NORMAL INSPECTION, NORMOCEPHALIC - Eye Exam Eye Exam: EOMI, Normal appearance - ENT Exam ENT Exam: Mucous Membranes Moist, Normal Oropharynx - Neck Exam Neck exam: Full Rom, Normal Inspection - Respiratory Exam Respiratory Exam: Clear to PA & Lateral, NORMAL BREATHING PATTERN - Cardiovascular Exam Cardiovascular Exam: RRR, +S1, +S2 - GI/Abdominal Exam GI & Abdominal Exam: Normal Bowel Sounds, Soft. absent: Mass, Organomegaly - Extremities Exam Extremities exam: normal capillary refill, pedal pulses present - Back Exam Back exam: absent: CVA tenderness (L), CVA tenderness (R) - Neurological Exam Neurological exam: Alert, Oriented x3 - Psychiatric Exam Psychiatric exam: Depressed, Normal Affect - Skin Skin Exam: Dry, Warm Discharge Plan - Follow Up Plan Condition: GOOD Disposition: HOME/ ROUTINE
--- NOTE | 2017-04-19 10:50 | CP.PCM.PN ---
Subjective - Date & Time of Evaluation Date of Evaluation: 04/19/17 Time of Evaluation: 10:34 - Subjective Subjective: Ms. Bolanos was seen and examined at the bedside. She is alert and able to respond to both verbal and tactile stimuli. She denies any headache, dizziness. lightheadedness. he is for possible discharge to a subacute today.There was no untoward events overnight. Objective - Vital Signs/Intake and Output Vital Signs (last 24 hours): Temp Pulse Resp BP Pulse Ox 97.7 F 77 18 130/88 100 04/19/17 09:18 04/19/17 09:18 04/19/17 09:18 04/19/17 09:18 04/19/17 09:18 - Medications Medications: Current Medications Acetaminophen (Tylenol 325mg Tab) 650 mg PO Q6 PRN PRN Reason: Other Last Admin: 04/15/17 14:43 Dose: 650 mg Amlodipine Besylate (Norvasc) 10 mg PO DAILY [facility] Last Admin: 04/19/17 09:10 Dose: 10 mg Apixaban (Eliquis) 2.5 mg PO BID [facility] PRN Reason: Protocol Last Admin: 04/19/17 09:07 Dose: 2.5 mg Aspirin (Ecotrin) 325 mg PO DAILY [facility] Last Admin: 04/19/17 09:07 Dose: 325 mg Atorvastatin Calcium (Lipitor) 20 mg PO HS [facility] Last Admin: 04/18/17 21:23 Dose: 20 mg Calcitriol (Rocaltrol) 0.25 mcg PO DAILY [facility] Last Admin: 04/19/17 09:08 Dose: 0.25 mcg Divalproex Sodium (Depakote Er(Once Daily)) 500 mg PO DAILY [facility] Last Admin: 04/19/17 09:07 Dose: 500 mg Docusate Sodium (Colace) 100 mg PO BID [facility] Last Admin: 04/19/17 09:06 Dose: 100 mg Donepezil HCl (Aricept) 5 mg PO HS [facility] Last Admin: 04/18/17 21:23 Dose: 5 mg Ergocalciferol (Drisdol 50,000 Intl Units Cap) 1 cap PO .SATURDAY AND SATURDAY [facility] Last Admin: 04/15/17 08:10 Dose: 1 cap Famotidine (Pepcid) 20 mg PO BID [facility] Last Admin: 04/19/17 09:08 Dose: 20 mg Hydrocortisone (Anusol-Hc) 25 mg [place] BID [facility] Last Admin: 04/19/17 09:06 Dose: 25 mg Magnesium Hydroxide (Milk Of Magnesia) 30 ml PO DAILY PRN PRN Reason: Other Last Admin: 04/06/17 02:47 Dose: 30 ml Metoprolol Tartrate (Lopressor) 25 mg PO Q12 [facility] Last Admin: 04/19/17 09:10 Dose: 25 mg Prednisone (Prednisone Tab) 5 mg PO DAILY [facility] Last Admin: 04/19/17 09:08 Dose: 5 mg Psyllium Hydrophilic Mucilloid (Hydrocil Instant) 1 pkt PO BID [facility] Last Admin: 04/19/17 09:07 Dose: 1 pkt Tramadol HCl (Ultram) 50 mg PO Q4 PRN PRN Reason: Pain, severe (8-10) Last Admin: 04/09/17 09:22 Dose: 50 mg - Labs Labs: 04/06/17 05:30 04/11/17 06:35 PT 12.5 Seconds (9.8-13.1) 04/06/17 06:45 INR 1.1 (0.9-1.2) 04/06/17 06:45 APTT 36.1 Seconds (25.6-37.1) 04/06/17 06:45 - Constitutional Appears: No Acute Distress - Head Exam Head Exam: ATRAUMATIC, NORMAL INSPECTION, NORMOCEPHALIC - Neurological Exam Neurological Exam: Alert, Awake, Oriented x3 Neuro motor strength exam: Left Upper Extremity: 5, Right Upper Extremity: 5, Left Lower Extremity: 5, Right Lower Extremity: 5 Additional comments: Neurological unchanged from previous examination. Assessment and Plan (1) Encephalopathy Assessment & Plan: Case discussed with Dr. Wilkins, continue all current medical, physical, occupational, and speech therapies. There is no new recommendation from neurology. Status: Acute
--- NOTE | 2017-04-19 14:56 | CP.PCM.PN ---
Subjective - Date & Time of Evaluation Date of Evaluation: 04/19/17 Time of Evaluation: 14:55 - Subjective Subjective: Patient seen and set for d/c to [facility] today no pain stable no fever or SOB Objective - Vital Signs/Intake and Output Vital Signs (last 24 hours): Temp Pulse Resp BP Pulse Ox 97.7 F 77 18 130/88 100 04/19/17 09:18 04/19/17 09:18 04/19/17 09:18 04/19/17 09:18 04/19/17 09:18 - Medications Medications: Current Medications Acetaminophen (Tylenol 325mg Tab) 650 mg PO Q6 PRN PRN Reason: Other Last Admin: 04/15/17 14:43 Dose: 650 mg Amlodipine Besylate (Norvasc) 10 mg PO DAILY [facility] Last Admin: 04/19/17 09:10 Dose: 10 mg Apixaban (Eliquis) 2.5 mg PO BID [facility] PRN Reason: Protocol Last Admin: 04/19/17 09:07 Dose: 2.5 mg Aspirin (Ecotrin) 325 mg PO DAILY [facility] Last Admin: 04/19/17 09:07 Dose: 325 mg Atorvastatin Calcium (Lipitor) 20 mg PO HS [facility] Last Admin: 04/18/17 21:23 Dose: 20 mg Calcitriol (Rocaltrol) 0.25 mcg PO DAILY [facility] Last Admin: 04/19/17 09:08 Dose: 0.25 mcg Divalproex Sodium (Depakote Er(Once Daily)) 500 mg PO DAILY [facility] Last Admin: 04/19/17 09:07 Dose: 500 mg Docusate Sodium (Colace) 100 mg PO BID [facility] Last Admin: 04/19/17 09:06 Dose: 100 mg Donepezil HCl (Aricept) 5 mg PO HS [facility] Last Admin: 04/18/17 21:23 Dose: 5 mg Ergocalciferol (Drisdol 50,000 Intl Units Cap) 1 cap PO .SATURDAY AND SATURDAY [facility] Last Admin: 04/15/17 08:10 Dose: 1 cap Famotidine (Pepcid) 20 mg PO BID [facility] Last Admin: 04/19/17 09:08 Dose: 20 mg Hydrocortisone (Anusol-Hc) 25 mg [place] BID [facility] Last Admin: 04/19/17 09:06 Dose: 25 mg Magnesium Hydroxide (Milk Of Magnesia) 30 ml PO DAILY PRN PRN Reason: Other Last Admin: 04/06/17 02:47 Dose: 30 ml Metoprolol Tartrate (Lopressor) 25 mg PO Q12 [facility] Last Admin: 04/19/17 09:10 Dose: 25 mg Prednisone (Prednisone Tab) 5 mg PO DAILY [facility] Last Admin: 04/19/17 09:08 Dose: 5 mg Psyllium Hydrophilic Mucilloid (Hydrocil Instant) 1 pkt PO BID [facility] Last Admin: 04/19/17 09:07 Dose: 1 pkt Tramadol HCl (Ultram) 50 mg PO Q4 PRN PRN Reason: Pain, severe (8-10) Last Admin: 04/09/17 09:22 Dose: 50 mg - Labs Labs: 04/06/17 05:30 04/11/17 06:35 PT 12.5 Seconds (9.8-13.1) 04/06/17 06:45 INR 1.1 (0.9-1.2) 04/06/17 06:45 APTT 36.1 Seconds (25.6-37.1) 04/06/17 06:45
== END 2017-04-19 15:25 | DRG 56 ==
PROVIDERS: ADMIT Internal Medicine; ATTEND Internal Medicine
PROC: F07Z9FZ Gait Training/Functional Ambulation Treatment using Assistive, Adaptive, Supportive or Protective Equipment (ICD-10-PCS; principal; 2017-04-05)
PROC: F08Z4FZ Home Management Treatment using Assistive, Adaptive, Supportive or Protective Equipment (ICD-10-PCS; 2017-04-05)
PROC: F07L6FZ Therapeutic Exercise Treatment of Musculoskeletal System - Lower Back / Lower Extremity using Assistive, Adaptive, Supportive or Protective Equipment (ICD-10-PCS; 2017-04-06)
DX: I69.354 Hemiplegia and hemiparesis following cerebral infarction affecting left non-dominant side (principal); G93.40 Encephalopathy, unspecified; I42.9 Cardiomyopathy, unspecified; I13.0 Hypertensive heart and chronic kidney disease with heart failure and stage 1 through stage 4 chronic kidney disease, or unspecified chronic kidney disease; F03.90 Unspecified dementia, unspecified severity, without behavioral disturbance, psychotic disturbance, mood disturbance, and anxiety; I50.9 Heart failure, unspecified; I48.92 Unspecified atrial flutter; I48.2 Chronic atrial fibrillation; N18.9 Chronic kidney disease, unspecified; I69.319 Unspecified symptoms and signs involving cognitive functions following cerebral infarction; E03.9 Hypothyroidism, unspecified; Z79.01 Long term (current) use of anticoagulants; Z85.528 Personal history of other malignant neoplasm of kidney; Z90.5 Acquired absence of kidney